=== PATIENT | female | born 1980 | race Caucasian/White ===

== ENCOUNTER 2017-04-15 14:19 | Outpatient (RCR) ==
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
== END 2017-04-23 ==
PROVIDERS: ATTEND Family Medicine
DX: G82.50 Quadriplegia, unspecified (principal); R53.1 Weakness; S09.90XD Unspecified injury of head, subsequent encounter; V89.2XXS Person injured in unspecified motor-vehicle accident, traffic, sequela

== ENCOUNTER 2017-05-02 14:56 | Emergency (ER) ==
[2017-05-02 15:33] VITALS: BP 139/82; TEMP 98.6; BMI 30.7
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
== END 2017-05-02 16:12 | disposition home or self-care (01) ==
LOC: ED 14:56
DX: S01.81XA Laceration without foreign body of other part of head, initial encounter (principal); W20.8XXA Other cause of strike by thrown, projected or falling object, initial encounter; F17.210 Nicotine dependence, cigarettes, uncomplicated
CPT/HCPCS: 99283

== ENCOUNTER 2017-06-13 11:47 | Emergency (ER) ==
[2017-06-13 11:56] VITALS: BP 111/77; TEMP 98.7; BMI 29.9
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
== END 2017-06-13 13:22 | disposition home or self-care (01) ==
LOC: ED 11:47
DX: R07.89 Other chest pain (principal); F17.210 Nicotine dependence, cigarettes, uncomplicated; W22.8XXA Striking against or struck by other objects, initial encounter
CPT/HCPCS: 99283

== ENCOUNTER 2017-07-03 10:04 | Outpatient (CLI) ==
[2017-07-03 10:16] LABS: BILIRUBIN,URINE Negative (NEGATIVE); KETONES,URINE Negative (NEGATIVE); LEUKOCYTE ESTERASE ,URINE Negative (NEGATIVE); NITRITE,URINE Negative (NEGATIVE); PROTEIN,URINE Negative (NEGATIVE); URINE, BLOOD Trace-intact (NEGATIVE)
[2017-07-03 10:33] LABS: ADD URINE MICROSCOPIC YES
== END 2017-07-03 10:05 | disposition home or self-care (01) ==
LOC: LAB 10:04 → NONPT 10:05
PROVIDERS: ATTEND Physician Assistant
DX: R32 Unspecified urinary incontinence (principal)
CPT/HCPCS: 81001

== ENCOUNTER 2017-08-02 13:22 | Emergency (ER) | payer OTHER ==
[2017-08-02 13:30] VITALS: BP 133/86; TEMP 98.9; BMI 29.1
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
--- NOTE | 2017-08-02 14:33 | DI ---
EXAM: Right ribs; AP, oblique, and cone down AP views HISTORY: Rib pain COMPARISON: Right rib series from 06/13/2017 FINDINGS: There is a minimally displaced mildly angulated fracture of the lateral aspect of the rig ht fifth rib which is more visible on today's examination. No other definite rib fractures are iden tified. There is no pneumothorax or pleural effusion. IMPRESSION: Right fifth rib fracture as described.
[2017-08-02] MEDS ORDERED: MOTRIN PO SCH (15:00)
== END 2017-08-02 14:47 | disposition home or self-care (01) ==
LOC: ED 13:22
DX: S22.31XA Fracture of one rib, right side, initial encounter for closed fracture (principal); W50.0XXA Accidental hit or strike by another person, initial encounter; F79 Unspecified intellectual disabilities; G82.20 Paraplegia, unspecified; F17.210 Nicotine dependence, cigarettes, uncomplicated
CPT/HCPCS: 99283

== ENCOUNTER 2017-08-09 12:31 | Inpatient (IN) ==
[2017-08-09] MEDS ORDERED: ZOSYN 3.375 GM 3.375 GM in SODIUM CHLORIDE 100 ML IV STA (13:05)
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
[2017-08-09 13:29] LABS: BASOPHILS % (AUTO) 0.3 % (0.0-3.0); EOSINOPHILS # (AUTO) 0.1 K/ul (0.0-0.7); EOSINOPHILS % (AUTO) 0.7 % (0.0-7.0); HEMATOCRIT 42.8 % (37.0-47.0); HEMOGLOBIN 14.3 g/dl (12.0-16.0); IMMATURE GRANULOCYTE % (AUTO) 0.6 % (0.0-5.0); LYMPHOCYTES # (AUTO) 1.8 K/uL (0.60-3.4); LYMPHOCYTES % (AUTO) 17.4 (10.0-50.0); MEAN CORPUSCULAR HEMOGLOBIN 32.4 pg (27.0-31.0); MEAN CORPUSCULAR HGB CONC 33.4 (31.8-35.4); MEAN CORPUSCULAR VOLUME 97.1 fl (81.0-99.0); MONOCYTES # (AUTO) 0.6 K/uL (0.4-2.0); MONOCYTES % (AUTO) 5.4 (0-10); NEUTROPHILS # (AUTO) 7.8 K/ul (2.0-6.9); NEUTROPHILS % (AUTO) 75.6; PLATELET COUNT 117 10^3/uL (140-440); RED BLOOD COUNT 4.41 10^6/ul (4.20-5.40); WHITE BLOOD COUNT 10.24 K/ul (4.6-10.2)
[2017-08-09 13:49] LABS: ALBUMIN 2.9 g/dL (3.4-5.0); ALBUMIN/GLOBULIN RATIO 0.62; ANION GAP 14.5; CALCIUM 9.4 mg/dL (8.2-10.2); POTASSIUM 3.5 mmol/L (3.5-5.10); TOTAL PROTEIN 7.6 g/dL (6.4-8.2)
[2017-08-09 13:50] LABS: BILIRUBIN,TOTAL 0.48 mg/dL (0.00-1.20); BUN/CREATININE RATIO 10.14; CREATININE 0.69 mg/dL (0.60-1.30)
[2017-08-09] MEDS ORDERED: TYLENOL PO PRN (14:43)
[2017-08-09] MEDS ORDERED: NORCO 5-325 PO PRN (14:43)
[2017-08-09] MEDS ORDERED: ZOFRAN 4 MG/2 ML IVP PRN (14:43)
[2017-08-09] MEDS ORDERED: PERCOCET 5-325 PO PRN (14:43)
[2017-08-09] MEDS ORDERED: NON-FORMULARY MEDICATION (Baclofen [Baclofen] 20 MG) PO SCH (15:00)
[2017-08-09 16:11] VITALS: BMI 30.5
[2017-08-09] MEDS ORDERED: TORADOL IVP PRN (16:25)
[2017-08-09] MEDS: MEDROXYPROGESTERONE ACETATE 150 MG IM SCH ×13 (16:39→17:55)
[2017-08-09] MEDS: SODIUM CHLORIDE 1,000 ML IV SCH (16:39)
[2017-08-09] MEDS ORDERED: NEURONTIN ONE ×2 (17:21→20:24)
[2017-08-09] MEDS ORDERED: BACLOFEN ONE ×2 (17:21→17:34)
[2017-08-09] MEDS: DANTROLENE SODIUM 25 MG PO SCH ×3 (17:28→23:06)
[2017-08-09] MEDS: NON-FORMULARY MEDICATION (Gabapentin [Gabapentin] 600 MG) PO SCH ×2 (17:29→20:37)
[2017-08-09] MEDS: NON-FORMULARY MEDICATION (Ibuprofen [Ibuprofen] 800 MG) PO SCH ×44 (17:29→20:40)
[2017-08-09] MEDS ORDERED: K-DUR ONE (20:24)
[2017-08-09] MEDS ORDERED: ATIVAN ONE (20:24)
[2017-08-09] MEDS ORDERED: NON-FORMULARY MEDICATION (Trazodone Hcl [Trazodone Hcl] 150 MG) PO SCH ×22 (20:31)
[2017-08-09] MEDS ORDERED: DESYREL ONE (20:33)
[2017-08-09] MEDS: ARTIFICIAL TEARS OPTH SOL OP SCH (20:36)
[2017-08-09] MEDS ORDERED: MOTRIN ONE (20:39)
[2017-08-09] MEDS ORDERED: BACLOFEN PO SCH ×2 (21:00)
[2017-08-09] MEDS ORDERED: NON-FORMULARY MEDICATION (Potassium Chloride [Potassium Chloride] 10 MEQ) PO SCH ×22 (21:00)
[2017-08-09] MEDS ORDERED: LORAZEPAM 2 MG PO SCH (21:00)
[2017-08-09] MEDS: NON-FORMULARY MEDICATION (Melatonin [Melatonin] 5 MG) PO SCH ×2 (21:28→23:06)
[2017-08-09] MEDS: ZOSYN 3.375 GM 3.375 GM in SODIUM CHLORIDE 100 ML IV SCH (23:20)
[2017-08-10] MEDS: ZOSYN 3.375 GM 3.375 GM in SODIUM CHLORIDE 100 ML IV SCH ×4 (05:01→17:49)
[2017-08-10 05:19] LABS: BASOPHILS % (AUTO) 0.5 % (0.0-3.0); EOSINOPHILS # (AUTO) 0.1 K/ul (0.0-0.7); EOSINOPHILS % (AUTO) 0.9 % (0.0-7.0); HEMATOCRIT 38.4 % (37.0-47.0); IMMATURE GRANULOCYTE % (AUTO) 0.7 % (0.0-5.0); LYMPHOCYTES # (AUTO) 1.6 K/uL (0.60-3.4); LYMPHOCYTES % (AUTO) 18.1 (10.0-50.0); MEAN CORPUSCULAR HEMOGLOBIN 32.3 pg (27.0-31.0); MEAN CORPUSCULAR HGB CONC 33.9 (31.8-35.4); MEAN CORPUSCULAR VOLUME 95.3 fl (81.0-99.0); MONOCYTES # (AUTO) 0.5 K/uL (0.4-2.0); MONOCYTES % (AUTO) 5.7 (0-10); NEUTROPHILS # (AUTO) 6.6 K/ul (2.0-6.9); NEUTROPHILS % (AUTO) 74.1; PLATELET COUNT 108 10^3/uL (140-440); RED BLOOD COUNT 4.03 10^6/ul (4.20-5.40); WHITE BLOOD COUNT 8.84 K/ul (4.6-10.2)
[2017-08-10 05:35] LABS: ANION GAP 12.5; CALCIUM 8.8 mg/dL (8.2-10.2); CREATININE 0.6 mg/dL (0.60-1.30); POTASSIUM 3.5 mmol/L (3.5-5.10)
[2017-08-10] MEDS: SODIUM CHLORIDE 1,000 ML IV SCH ×2 (06:24→21:16)
[2017-08-10] MEDS: PREDNISONE PO SCH ×3 (08:59→21:14)
[2017-08-10] MEDS: MOTRIN PO SCH ×3 (08:59→21:14)
[2017-08-10] MEDS: DESYREL PO SCH ×3 (08:59→21:15)
[2017-08-10] MEDS: MICRO-K CAP PO SCH ×2 (08:59→17:48)
[2017-08-10] MEDS ORDERED: BACLOFEN PO SCH (09:00)
[2017-08-10] MEDS ORDERED: NON-FORMULARY MEDICATION (Baclofen [Baclofen] 20 MG) PO SCH (09:00)
[2017-08-10] MEDS ORDERED: NON-FORMULARY MEDICATION (Tolterodine Tartrate 4 MG) PO SCH (09:00)
[2017-08-10] MEDS ORDERED: NON-FORMULARY MEDICATION (Trazodone Hcl [Trazodone Hcl] 150 MG) PO SCH ×22 (09:00)
[2017-08-10] MEDS: PROZAC PO SCH (09:00)
[2017-08-10] MEDS: DETROL LA PO SCH (09:00)
[2017-08-10] MEDS: NEURONTIN PO SCH ×3 (09:01→21:15)
[2017-08-10] MEDS: LOVENOX SUBCUT SCH ×2 (09:01→09:07)
[2017-08-10] MEDS: DANTROLENE SODIUM 25 MG PO SCH ×5 (09:05→21:15)
--- NOTE | 2017-08-10 10:13 | DI ---
EXAM: Chest, single view, 08/09/2017 HISTORY: Right rib pain COMPARISON: None. FINDINGS / IMPRESSION: The heart size appears stable. There is diffuse interstitial prominence thro ughout both lungs which may relate to atelectasis and/or pneumonitis. There is no focal pulmonary co nsolidation. No pleural effusion or pneumothorax.
[2017-08-10] MEDS: BACLOFEN PO SCH ×2 (17:48→21:15)
[2017-08-10] MEDS: ARTIFICIAL TEARS OPTH SOL OP SCH (21:14)
[2017-08-10] MEDS: BACTRIM DS 800/160 MG PO SCH (21:14)
[2017-08-10] MEDS: ATIVAN PO SCH (21:15)
[2017-08-10] MEDS: NON-FORMULARY MEDICATION (Melatonin [Melatonin] 5 MG) PO SCH (21:16)
[2017-08-11 07:13] LABS: BASOPHILS % (AUTO) 0.1 % (0.0-3.0); EOSINOPHILS # (AUTO) 0.1 K/ul (0.0-0.7); EOSINOPHILS % (AUTO) 0.9 % (0.0-7.0); HEMATOCRIT 40.1 % (37.0-47.0); HEMOGLOBIN 13.4 g/dl (12.0-16.0); IMMATURE GRANULOCYTE % (AUTO) 0.8 % (0.0-5.0); LYMPHOCYTES # (AUTO) 0.2 K/uL (0.60-3.4); LYMPHOCYTES % (AUTO) 1.8 (10.0-50.0); MEAN CORPUSCULAR HEMOGLOBIN 32.4 pg (27.0-31.0); MEAN CORPUSCULAR HGB CONC 33.4 (31.8-35.4); MEAN CORPUSCULAR VOLUME 97.1 fl (81.0-99.0); MONOCYTES # (AUTO) 0.1 K/uL (0.4-2.0); NEUTROPHILS # (AUTO) 9.9 K/ul (2.0-6.9); NEUTROPHILS % (AUTO) 95.4; PLATELET COUNT 111 10^3/uL (140-440); RED BLOOD COUNT 4.13 10^6/ul (4.20-5.40); WHITE BLOOD COUNT 10.36 K/ul (4.6-10.2)
[2017-08-11 07:32] LABS: ANION GAP 13.7; BUN/CREATININE RATIO 11.11; CALCIUM 9.1 mg/dL (8.2-10.2); CREATININE 0.63 mg/dL (0.60-1.30); POTASSIUM 3.7 mmol/L (3.5-5.10)
[2017-08-11] MEDS: BACTRIM DS 800/160 MG PO SCH ×2 (10:18→20:20)
[2017-08-11] MEDS: BACLOFEN PO SCH ×3 (10:19→20:21)
[2017-08-11] MEDS: DETROL LA PO SCH (10:20)
[2017-08-11] MEDS: MOTRIN PO SCH ×3 (10:21→20:20)
[2017-08-11] MEDS: MICRO-K CAP PO SCH ×2 (10:21→18:05)
[2017-08-11] MEDS: PROZAC PO SCH (10:22)
[2017-08-11] MEDS: NEURONTIN PO SCH ×3 (10:22→20:21)
[2017-08-11] MEDS: LOVENOX SUBCUT SCH (10:23)
[2017-08-11] MEDS: DANTROLENE SODIUM 25 MG PO SCH ×3 (10:30→20:19)
[2017-08-11 11:29] LABS: ERYTHROCYTE SEDIMENTATION RATE 68 mm/hr (0-20); ESR INTERNAL QC INTERNAL QC VALID
--- NOTE | 2017-08-11 14:34 | CT ---
EXAM: CT of the right elbow without contrast History: Right elbow cellulitis. Comparison: None available. Technique: Multiplanar CT images through the right elbow were obtained without the administration of IV contrast Findings: No acute fracture or dislocation. No specific evidence for osteomyelitis. Posterior subc utaneous edema. Focal area of posterior soft tissue swelling measuring 3.4 cm x 1.5 cm. There is a skin defect/ulceration posterior to the olecranon of the ulna. Evaluation for abscess is limited due to the lack of IV contrast administration. There are a few borderline enlarged lymph nodes within t he antecubital fossa which are probably reactive. Impression: 1. Cellulitis. 2. Focal area of posterior soft tissue versus small abscess but evaluation for abscess is limited du e to the lack of IV contrast administration. 3. Skin defect/ulceration posterior to the olecranon of the ulna. There is no evidence for osteomye litis. 4. Probably reactive lymph nodes within the antecubital fossa.
[2017-08-11] MEDS: NON-FORMULARY MEDICATION (Melatonin [Melatonin] 5 MG) PO SCH (20:19)
[2017-08-11] MEDS: PREDNISONE PO SCH (20:20)
[2017-08-11] MEDS: ATIVAN PO SCH (20:20)
[2017-08-11] MEDS: DESYREL PO SCH (20:21)
[2017-08-11] MEDS: ARTIFICIAL TEARS OPTH SOL OP SCH (20:23)
[2017-08-12] MEDS ORDERED: DECADRON 4 MG/ML SDV IM STA ×2 (08:32→10:56)
[2017-08-12] MEDS: BACLOFEN PO SCH ×3 (10:58→21:49)
[2017-08-12] MEDS: DANTROLENE SODIUM 25 MG PO SCH ×3 (10:59→21:50)
[2017-08-12] MEDS: BACTRIM DS 800/160 MG PO SCH ×2 (10:59→21:49)
[2017-08-12] MEDS: DETROL LA PO SCH (11:00)
[2017-08-12] MEDS: MICRO-K CAP PO SCH ×2 (11:00→17:10)
[2017-08-12] MEDS: NEURONTIN PO SCH ×3 (11:01→21:50)
[2017-08-12] MEDS: MOTRIN PO SCH ×3 (11:01→21:50)
[2017-08-12] MEDS: PROZAC PO SCH (11:02)
[2017-08-12 11:06] LABS: BASOPHILS % (AUTO) 0.5 % (0.0-3.0); EOSINOPHILS # (AUTO) 0.1 K/ul (0.0-0.7); EOSINOPHILS % (AUTO) 1.4 % (0.0-7.0); HEMATOCRIT 41.2 % (37.0-47.0); HEMOGLOBIN 13.6 g/dl (12.0-16.0); IMMATURE GRANULOCYTE % (AUTO) 1.4 % (0.0-5.0); LYMPHOCYTES # (AUTO) 0.3 K/uL (0.60-3.4); LYMPHOCYTES % (AUTO) 6.4 (10.0-50.0); MEAN CORPUSCULAR HEMOGLOBIN 32.5 pg (27.0-31.0); MEAN CORPUSCULAR VOLUME 98.6 fl (81.0-99.0); MONOCYTES # (AUTO) 0.2 K/uL (0.4-2.0); MONOCYTES % (AUTO) 3.6 (0-10); NEUTROPHILS # (AUTO) 3.6 K/ul (2.0-6.9); NEUTROPHILS % (AUTO) 86.7; PLATELET COUNT 126 10^3/uL (140-440); RED BLOOD COUNT 4.18 10^6/ul (4.20-5.40)
[2017-08-12] MEDS: LOVENOX SUBCUT SCH (11:06)
[2017-08-12 11:56] LABS: ANION GAP 12.1; BUN/CREATININE RATIO 24.13; CALCIUM 8.6 mg/dL (8.2-10.2); CREATININE 0.58 mg/dL (0.60-1.30); POTASSIUM 4.1 mmol/L (3.5-5.10)
[2017-08-12] MEDS ORDERED: VANCOMYCIN 1 GM in SODIUM CHLORIDE 250 ML IV SCH (18:00)
[2017-08-12] MEDS: ZOSYN 3.375 GM 3.375 GM in SODIUM CHLORIDE 100 ML IV SCH ×2 (18:40→23:40)
[2017-08-12] MEDS: ARTIFICIAL TEARS OPTH SOL OP SCH (21:47)
[2017-08-12] MEDS: PREDNISONE PO SCH (21:49)
[2017-08-12] MEDS: DESYREL PO SCH (21:49)
[2017-08-12] MEDS: NON-FORMULARY MEDICATION (Melatonin [Melatonin] 5 MG) PO SCH (21:50)
[2017-08-12] MEDS: ATIVAN PO SCH (21:54)
[2017-08-13 04:58] LABS: BASOPHILS % (AUTO) 0.3 % (0.0-3.0); EOSINOPHILS % (AUTO) 0.3 % (0.0-7.0); HEMATOCRIT 38.1 % (37.0-47.0); HEMOGLOBIN 12.8 g/dl (12.0-16.0); IMMATURE GRANULOCYTE % (AUTO) 0.8 % (0.0-5.0); LYMPHOCYTES # (AUTO) 0.6 K/uL (0.60-3.4); LYMPHOCYTES % (AUTO) 15.1 (10.0-50.0); MEAN CORPUSCULAR HEMOGLOBIN 31.9 pg (27.0-31.0); MEAN CORPUSCULAR HGB CONC 33.6 (31.8-35.4); MONOCYTES # (AUTO) 0.2 K/uL (0.4-2.0); MONOCYTES % (AUTO) 6.3 (0-10); NEUTROPHILS % (AUTO) 77.2; PLATELET COUNT 121 10^3/uL (140-440); RED BLOOD COUNT 4.01 10^6/ul (4.20-5.40); WHITE BLOOD COUNT 3.83 K/ul (4.6-10.2)
[2017-08-13] MEDS: ZOSYN 3.375 GM 3.375 GM in SODIUM CHLORIDE 100 ML IV SCH ×3 (05:08→17:15)
[2017-08-13 05:27] LABS: ANION GAP 12.1; BUN/CREATININE RATIO 18.18; CALCIUM 8.7 mg/dL (8.2-10.2); CREATININE 0.66 mg/dL (0.60-1.30); POTASSIUM 4.1 mmol/L (3.5-5.10)
[2017-08-13] MEDS ORDERED: VANCOMYCIN 1 GM in SODIUM CHLORIDE 250 ML IV SCH (09:30)
[2017-08-13] MEDS: BACLOFEN PO SCH ×3 (09:37→21:29)
[2017-08-13] MEDS: DETROL LA PO SCH (09:38)
[2017-08-13] MEDS: MICRO-K CAP PO SCH ×2 (09:38→17:16)
[2017-08-13] MEDS: MOTRIN PO SCH ×3 (09:38→21:32)
[2017-08-13] MEDS: BACTRIM DS 800/160 MG PO SCH ×2 (09:38→21:31)
[2017-08-13] MEDS: NEURONTIN PO SCH ×3 (09:38→21:31)
[2017-08-13] MEDS: PROZAC PO SCH (09:38)
[2017-08-13] MEDS: BENADRYL PO SCH ×2 (09:41→21:31)
[2017-08-13] MEDS: DANTROLENE SODIUM 25 MG PO SCH ×3 (09:41→21:27)
[2017-08-13] MEDS: LOVENOX SUBCUT SCH (09:50)
[2017-08-13] MEDS: VANCOMYCIN 1 GM in SODIUM CHLORIDE 250 ML IV SCH ×2 (09:50→20:31)
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
--- NOTE | 2017-08-13 14:49 | PN ---
DATE OF SERVICE: 08/10/17 SUBJECTIVE: The patient has been troubling for the nurses, refusing to have IV antibiotics and pulled out the IV line. The patient has a power of public relations specialist who is her mother and we are not always able to reach her. REVIEW OF SYSTEMS: CONSTITUTIONAL: No fever, no chills. HEENT: Normal. ENDOCRINE: No weight gain, no weight loss. CVS: No angina symptoms. No CHF symptoms. No palpitations. No atypical chest pain for CAD. No shortness of breath. No PND, no orthopnea. RESPIRATORY: No cough, no hemoptysis. GI: No nausea, no vomiting. No abdominal pain. : No hematuria. No polyuria. MUSCULOSKELETAL:. Right elbow swelling, redness and tenderness. PSYCHIATRIC: Not anxious. No depression. No suicidal thoughts. No homicidal thoughts. SKIN: Intact. No rash. PHYSICAL EXAMINATION: V/S: BP 115/76, respiratory rate 18, heart rate 86, temperature 98.2. Saturation 93. HEENT: Normocephalic, atraumatic. Mucosa dry. NECK: Supple. No JVD, no carotid bruit. No lymphadenopathy. LUNGS: Clear to auscultation. No rales or rhonchi. HEART: S1, S2 normal. No S3. No murmur, gallop or regurgitation. ABDOMEN: Soft, nontender. Bowel sounds active. No rigidity. No rebound or guarding. No CVA tenderness. EXTREMITIES: No clubbing, cyanosis or pedal edema. MUSCULOSKELETAL: Right elbow swelling, redness and tenderness is present. Can see drainage. NEUROLOGIC: Awake, alert, oriented times three. Communication is poor because of the patient's condition. No focal deficit. LYMPHATIC: No lymph nodes palpable. SKIN: Intact. LABS: White count 8.84, hemoglobin 13.0, hematocrit 38.4, platelet count 108. Sodium 136, potassium 3.5, chloride 105, bicarb 22, BUN 6, creatinine 0.60. ASSESSMENT: 1. RIGHT ELBOW ABSCESS WITH A DRAINING AREA 2. HISTORY OF TRAUMATIC BRAIN INJURY 3. QUADRIPLEGIA 4. DEPRESSION 5. ANXIETY 6. ON MEDICAL MARIJUANA PLAN: Will try to get IV line again. Explained to patient the importance of the medication and risk of getting infection to the bone and osteomyelitis. As I already stated, the patient has a poor capability of understanding with given condition. She kept saying that she wants to go home but when we talked with the patient's mother, who is the power of public relations specialist, she refused to send her back to assisted living facility. Advised nurses to please get the IV line and start antibiotics. Meanwhile, the patient is on Bactrim DS p.o. medication. TIME SPENT: More than 30 minutes MTDD
[2017-08-13] MEDS: ARTIFICIAL TEARS OPTH SOL OP SCH (21:27)
[2017-08-13] MEDS: NON-FORMULARY MEDICATION (Melatonin [Melatonin] 5 MG) PO SCH (21:28)
[2017-08-13] MEDS: PREDNISONE PO SCH (21:29)
[2017-08-13] MEDS: DESYREL PO SCH (21:30)
[2017-08-13] MEDS: ATIVAN PO SCH (21:39)
[2017-08-14] MEDS: ZOSYN 3.375 GM 3.375 GM in SODIUM CHLORIDE 100 ML IV SCH ×4 (01:50→17:11)
[2017-08-14] MEDS: VANCOMYCIN 1 GM in SODIUM CHLORIDE 250 ML IV SCH ×2 (08:40→21:39)
[2017-08-14] MEDS: DANTROLENE SODIUM 25 MG PO SCH ×3 (08:44→22:03)
[2017-08-14] MEDS: PROZAC PO SCH (08:45)
[2017-08-14] MEDS: BENADRYL PO SCH ×2 (08:45→22:04)
[2017-08-14] MEDS: BACLOFEN PO SCH ×3 (08:45→22:00)
[2017-08-14] MEDS: MOTRIN PO SCH ×3 (08:45→22:04)
[2017-08-14] MEDS: NEURONTIN PO SCH ×3 (08:46→22:04)
[2017-08-14] MEDS: BACTRIM DS 800/160 MG PO SCH ×2 (08:46→22:03)
[2017-08-14] MEDS: LOVENOX SUBCUT SCH (08:46)
[2017-08-14] MEDS: MICRO-K CAP PO SCH ×2 (08:46→17:18)
[2017-08-14] MEDS: DETROL LA PO SCH (08:46)
[2017-08-14 09:38] LABS: BASOPHILS % (AUTO) 0.8 % (0.0-3.0); HEMATOCRIT 42.1 % (37.0-47.0); IMMATURE GRANULOCYTE % (AUTO) 1.3 % (0.0-5.0); LYMPHOCYTES # (AUTO) 1.2 K/uL (0.60-3.4); LYMPHOCYTES % (AUTO) 30.3 (10.0-50.0); MEAN CORPUSCULAR HGB CONC 33.3 (31.8-35.4); MEAN CORPUSCULAR VOLUME 96.1 fl (81.0-99.0); MONOCYTES # (AUTO) 0.3 K/uL (0.4-2.0); MONOCYTES % (AUTO) 7.8 (0-10); NEUTROPHILS # (AUTO) 2.3 K/ul (2.0-6.9); NEUTROPHILS % (AUTO) 58.8; PLATELET COUNT 138 10^3/uL (140-440); RED BLOOD COUNT 4.38 10^6/ul (4.20-5.40); WHITE BLOOD COUNT 3.86 K/ul (4.6-10.2)
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
[2017-08-14 09:54] LABS: ANION GAP 14.2; BUN/CREATININE RATIO 12.32; CALCIUM 8.7 mg/dL (8.2-10.2); CREATININE 0.73 mg/dL (0.60-1.30); POTASSIUM 4.2 mmol/L (3.5-5.10)
--- NOTE | 2017-08-14 10:32 | PCM.PROG ---
Attending Provider: ATTENDING PROVIDER: Dr. VERO HENDERSON DATE OF SERVICE: 08/14/17 SUBJECTIVE: This 36 year old WHITE/ F was hospitalized 08/09/17. The patient is lying in bed. She is receiving IV Vancomycin and did not have any reaction to it. The right elbow wound is draining pus, gram positive cocci, heavy. REVIEW OF SYSTEMS: CONSTITUTIONAL: No fever, no chills. ENDOCRINE: No weight loss or weight gain. HEENT: No sinus drainage, no sore throat. CVS: No angina symptoms. No CHF symptoms. No palpitations. No atypical chest pain for CAD. No shortness of breath. RESPIRATORY: No cough, no hemoptysis. GI: No melena. No abdominal pain. No nausea, no vomiting. : No hematuria. No polyuria. SKIN: No rash. Abscess on right elbow, draining. MUSCULOSKELETAL: No pain. PITCHING COACH: No blackout, no dizziness. No headache. No double vision. PSYCHIATRIC: Not anxious; no depression. No suicidal thoughts. No homicidal thoughts. PHYSICAL EXAMINATION: GENERAL: Lying in bed in no distress. VITAL SIGNS: Temperature 98.2 F, Pulse 76, Respiratory Rate 16, BP 125/89, Pulse Ox 93% HEENT: Normocephalic, atraumatic. Mucosa is dry, pallor positive. NECK: No JVP, no carotid bruit. No lymphadenopathy. CARDIAC: S1, S2, no S3. No murmur, gallop or regurgitation. LUNGS: Clear to auscultation. ABDOMEN: Soft, non-tender. Bowel sounds active. No rigidity, guarding or CVA tenderness. EXTREMITIES: No clubbing, cyanosis or edema. Wound on the right elbow has less swelling and redness today. It is draining pus and blood mixed. Size of the wound is drastically reduced. NEUROLOGIC: Awake, alert and oriented with confusion at times. LYMPHATIC: No palpable lymph nodes SKIN: Not dry. Intact. MUSCULOSKELETAL: No joint swelling. LAB REVIEW: 08/13/17 04:50 08/13/17 04:50 ASSESSMENT: 1. Right elbow abscess 2. History of traumatic brain injury 3. Quadriplegia (but patient moves right upper extremity - right arm fine) 4. Depression 5. Anxiety PLAN: 1. Request Dr. Palacios consult 2. Apply dry dressing 3. Continue IV Vancomycin Plan and coordination of the patient's care discussed in the presence of Coach Tour Driver and nurse. CONDITION: Stable SCRIBED BY: CHIN ISAAC [employer] Analysis Technician scribed while in presence of service performed by Dr. VERO HENDERSON on 08/14/17 ([id number])
--- NOTE | 2017-08-14 11:09 | PN ---
DATE OF SERVICE: 08/12/17 SUBJECTIVE: The patient was admitted with the right elbow abscess. It is still draining the puss. Dr. Palacios has seen the patient and he did also mention in consult that the patient is high risk for the osteomyelitis if the treatment was not given properly. CAT scan did not show any osteomyelitis at this time. REVIEW OF SYSTEMS: CONSTITUTIONAL: No fever, no chills. HEENT: Normal. ENDOCRINE: No weight gain, no weight loss. CVS: No angina symptoms. No CHF symptoms. No palpitations. No atypical chest pain for CAD. No shortness of breath. No PND, no orthopnea. RESPIRATORY: No cough, no hemoptysis. GI: No nausea, no vomiting. No abdominal pain. : No hematuria. No polyuria. MUSCULOSKELETAL:. No joint swelling. PSYCHIATRIC: Not anxious. No depression. No suicidal thoughts. No homicidal thoughts. SKIN: Intact. No rash. PHYSICAL EXAMINATION: V/S: Blood pressure 106/70, respiratory rate 20, heart rate 83, temperature 98.3 with saturation 96% on the room air. HEENT: Normocephalic, atraumatic. Mucosa . NECK: Supple. No JVD, no carotid bruit. No lymphadenopathy. LUNGS: Decreased and basilar crackles. No rales or rhonchi. HEART: S1, S2 normal. No S3. No murmur, gallop or regurgitation. ABDOMEN: Soft, nontender. Bowel sounds active. No rigidity. No rebound or guarding. No CVA tenderness. EXTREMITIES: No clubbing, cyanosis or pedal edema. Right elbow abscess is still draining puss, yellow to bloody. Swelling and size in slightly reduced. MUSCULOSKELETAL: No joint swelling. NEUROLOGIC: Awake, alert, oriented times three. No focal deficit. LYMPHATIC: No lymph nodes palpable. SKIN: Intact. LABS: WBC 4.20, hgb 13.6, hct 41.2, plt count 126, sodium 137, potassium 4.1, chloride 108, bicarb 21, BUN 14, creatinine 0.58. ASSESSMENT: 1. Right elbow abscess with drainage, preliminary wound culture did not read any bacteria yet. The patient is on the Bactrim DS. 2. Traumatic brain injury 3. Quadriplegia, on medical marijuana 4. Depression 5. Anxiety PLAN: 1. Will give IV line and start the patient on the Zosyn 2. Will try to get the Vancomycin but the patient is listed as allergy but will confirm with the patient's mother about what kind of allergy she has 3. Wet to dry dressing 4. Bactrim DS PO daily Will follow the patient in daily rounds. TIME SPENT: More than 35 minutes MTDD
--- NOTE | 2017-08-14 11:27 | PN ---
DATE OF SERVICE: 08/13/17 SUBJECTIVE: The patient was admitted with right elbow abscess and drainage. The patient was able to get the Zosyn yesterday. The patient's mother said that patient had a "Red Saranya" syndrome with the Vancomycin. We will give the first dose of the Vancomycin today and will give very slow rate and will give some Benadryl. The patient a little bit comfortable and still talks about going home but she is aware that the mother has to agree for that and she is unable. REVIEW OF SYSTEMS: CONSTITUTIONAL: No fever, no chills. HEENT: Normal. ENDOCRINE: No weight gain, no weight loss. CVS: No angina symptoms. No CHF symptoms. No palpitations. No atypical chest pain for CAD. No shortness of breath. No PND, no orthopnea. RESPIRATORY: No cough, no hemoptysis. GI: No nausea, no vomiting. No abdominal pain. : No hematuria. No polyuria. MUSCULOSKELETAL:. No joint swelling. PSYCHIATRIC: Not anxious. No depression. No suicidal thoughts. No homicidal thoughts. SKIN: Intact. No rash. PHYSICAL EXAMINATION: V/S: Blood pressure 111/69, respiratory rate 16, heart rate 70, temperature 98.0 with saturation 91% on the room air. HEENT: Normocephalic, atraumatic. Mucosa dry. NECK: Supple. No JVD, no carotid bruit. No lymphadenopathy. LUNGS: Decreased and basilar crackles. Clear to auscultation. No rales or rhonchi. HEART: S1, S2 normal. No S3. No murmur, gallop or regurgitation. ABDOMEN: Soft, nontender. Bowel sounds active. No rigidity. No rebound or guarding. No CVA tenderness. EXTREMITIES: No clubbing, cyanosis or pedal edema. Right elbow swelling and the redness is somewhat better. Still draining the yellow bloody puss. MUSCULOSKELETAL: No joint swelling. NEUROLOGIC: Awake, alert, oriented times three. No focal deficit. LYMPHATIC: No lymph nodes palpable. SKIN: Intact. LABS: Sodium 134, potassium 4.1, chloride 104, bicarb 22, BUN 12, creatinine 0.66, WBC 3.83, hgb 12.8, hct 38.1, plt count 121 ASSESSMENT: 1. Right elbow abscess with the drainage 2. History of traumatic brain injury 3. Quadriplegia 4. Muscle spasms on medication marijuana 5. Depression 6. Anxiety 7. Multiple skin graft PLAN: 1. Continue Zosyn 2. Continue Bactrim DS 3. Will do first dose of Vancomycin 4. Lovenox for the DVT prophylaxis Will follow the patient in daily rounds. TIME SPENT: More than 35 minutes MTDD
[2017-08-14] MEDS ORDERED: BACTROBAN TP SCH (21:00)
[2017-08-14] MEDS: PREDNISONE PO SCH (22:00)
[2017-08-14] MEDS: ARTIFICIAL TEARS OPTH SOL OP SCH (22:01)
[2017-08-14] MEDS: DESYREL PO SCH (22:03)
[2017-08-14] MEDS: NON-FORMULARY MEDICATION (Melatonin [Melatonin] 5 MG) PO SCH (22:03)
[2017-08-14] MEDS: ATIVAN PO SCH (22:04)
[2017-08-14] MEDS: BACTROBAN TP SCH (23:11)
[2017-08-15] MEDS: ZOSYN 3.375 GM 3.375 GM in SODIUM CHLORIDE 100 ML IV SCH ×3 (00:51→12:24)
[2017-08-15 05:50] LABS: HEMATOCRIT 39.7 % (37.0-47.0); HEMOGLOBIN 13.3 g/dl (12.0-16.0); MEAN CORPUSCULAR HEMOGLOBIN 32.1 pg (27.0-31.0); MEAN CORPUSCULAR HGB CONC 33.5 (31.8-35.4); MEAN CORPUSCULAR VOLUME 95.9 fl (81.0-99.0); PLATELET COUNT 133 10^3/uL (140-440); RED BLOOD COUNT 4.14 10^6/ul (4.20-5.40); WHITE BLOOD COUNT 4.69 K/ul (4.6-10.2)
[2017-08-15 05:54] LABS: ANISOCYTOSIS NOT PRESENT (NOT PRESENT)
[2017-08-15] MEDS: VANCOMYCIN 1 GM in SODIUM CHLORIDE 250 ML IV SCH (06:03)
[2017-08-15 06:13] LABS: ANION GAP 12.4; BUN/CREATININE RATIO 15.49; CALCIUM 8.6 mg/dL (8.2-10.2); CREATININE 0.71 mg/dL (0.60-1.30); POTASSIUM 4.4 mmol/L (3.5-5.10)
[2017-08-15 10:31] VITALS: BP 135/92; TEMP 97
[2017-08-15] MEDS: NEURONTIN PO SCH (10:36)
[2017-08-15] MEDS: BENADRYL PO SCH (10:36)
[2017-08-15] MEDS: PROZAC PO SCH (10:36)
[2017-08-15] MEDS: MICRO-K CAP PO SCH (10:36)
[2017-08-15] MEDS: BACTRIM DS 800/160 MG PO SCH (10:36)
[2017-08-15] MEDS: BACTROBAN TP SCH (10:37)
[2017-08-15] MEDS: BACLOFEN PO SCH (10:37)
[2017-08-15] MEDS: DANTROLENE SODIUM 25 MG PO SCH (10:37)
[2017-08-15] MEDS: DETROL LA PO SCH (10:37)
[2017-08-15] MEDS: MOTRIN PO SCH (10:37)
[2017-08-15] MEDS: LOVENOX SUBCUT SCH (10:38)
[2017-08-15] MEDS ORDERED: DIFLUCAN PO STA (10:49)
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
== END 2017-08-15 14:15 | disposition home or self-care (01) | DRG 603 ==
LOC: ED 12:31 → SCU 14:37
PROVIDERS: ADMIT Emergency Medicine; ATTEND Emergency Medicine
DX: L03.113 Cellulitis of right upper limb (principal); G82.20 Paraplegia, unspecified; S50.311A Abrasion of right elbow, initial encounter; F79 Unspecified intellectual disabilities; B95.62 Methicillin resistant Staphylococcus aureus infection as the cause of diseases classified elsewhere; F41.8 Other specified anxiety disorders; M62.838 Other muscle spasm; S22.39XD Fracture of one rib, unspecified side, subsequent encounter for fracture with routine healing; F17.210 Nicotine dependence, cigarettes, uncomplicated; F12.90 Cannabis use, unspecified, uncomplicated; Z93.0 Tracheostomy status; Z87.820 Personal history of traumatic brain injury; V89.2XXS Person injured in unspecified motor-vehicle accident, traffic, sequela; Z79.899 Other long term (current) drug therapy
CPT/HCPCS: 36415; 80048; 80053; 85007; 85025; 85651; 87040; 87070; 87186; 96365; 97802; 99284

== ENCOUNTER 2017-08-20 10:39 | Outpatient (CLI) | END 2017-08-20 10:40 | disposition home or self-care (01) | LOC: WOUND 10:39 | PROVIDERS: ATTEND Nurse Practitioner Family | DX: S51.011A Laceration without foreign body of right elbow, initial encounter (principal); G82.50 Quadriplegia, unspecified; M19.90 Unspecified osteoarthritis, unspecified site | CPT/HCPCS: 11042; 99201; 99202 ==

== ENCOUNTER 2017-08-24 11:27 | Inpatient (IN) ==
--- NOTE | 2017-08-24 11:42 | ED.PDOC ---
General ED Provider: Dr. ASHER MORFIN Chief Complaint: Stroke Stated Complaint: Found this AM upon awakening with slurred speech and left sided weakness. Patient denies headache or other pain. Difficult to understand, speech is sometimes unintelligible. Time Seen by Physician: 11:30 Mode of Arrival: Ambulance Information Source: Patient, EMT, Assisted Living Exam Limitations: Physical impairment Primary Care Provider: ROHAN HAZEL Nursing and Triage Documentation Reviewed and Agree: Yes Neurological Complaint Exam - Neurological Deficit Complaint/Exam Patient Complains of: Reports: Muscle weakness (left arm and left leg plus slurred speech) Symptom Onset Unknown: Yes Symptom Onset Date: 08/24/17 Symptoms Are: Still present Timing: Constant Initial Severity: Moderate Current Severity: Moderate Location: Reports: Facial, LUE, LLE Character: Reports: Motor weakness (left arm and leg were much weaker than normal when found, left arm has improved a little), Impaired speech (speech is much more slurred than usual, unintelligible at times) Aggravating: Reports: None Alleviating: Reports: None Associated Signs and Symptoms: Reports: Recent illness (MRSA infection of left elbow, s/p hospitlization last week, coughing more than usual today) SDH Risk Factors: Reports: None Carotid Bruit Present: No Meningeal Signs Positive: No Focal Weakness: Present: LUE, LLE, Right facial (no obvious facial muscle weakness except slurred speech), Left facial Nystagmus Present: No Gag Reflex Present: Yes Romberg Test Positive: No Babinski Sign: Negative Right, Negative Left Heel to Toe Normal: No (unable to perform because of paraplegia) Signs of Trauma: No Differential Diagnoses: CVA, TIA, Intracranial Mass, Intracranial Bleed Review of Systems - Review Of Systems Constitutional: Reports: Weakness Eyes: Reports: No symptoms Ears, Nose, Mouth, Throat: Reports: No symptoms Respiratory: Reports: No symptoms, Cough (increased [employer] cough today) Cardiac: Reports: No symptoms GI: Reports: No symptoms : Reports: No symptoms Musculoskeletal: Reports: Other (patient has partial hemiplegia and cannot move legs very much) Skin: Reports: No symptoms Neurological: Reports: Unable to move lower ext, Unable to move upper ext ( couldn't move left arm when found, can move it now but weaker than right arm), Weakness All Other Systems: Reviewed and Negative Past Medical History - Past Medical History Previously Healthy: Yes Endocrine: Reports: None Cardiovascular: Reports: None Respiratory: Reports: None Hematological: Reports: None Gastrointestinal: Reports: None Genitourinary: Reports: None Neuro/Psych: Reports: Anxiety, Depression, Other (paraplegia, mental retardation ) Musculoskeletal: Reports: Arthritis Cancer: Reports: None Last Menstrual Period: unknown Other Pertinent Past Medical History: TIB - Surgical History General Surgical History: Reports: , Orthopedic (carpal tunnel release ) - Family History Family History: Reports: None - Social History Smoking Status: Current every day smoker, Heavy tobacco smoker Hx Substance Use: No Alcohol Screening: None Lives: In [place] - Immunizations Tetanus Shot up to Date: No Influenza Vaccine within 12 Months: No Pneumococcal Vaccine up to Date: No Physical Exam - Physical Exam Appearance: Well-appearing, No pain distress, Well-nourished, Obese Ill-appearing: None Pain Distress: None Eyes: MERVAT, EOMI, Conjunctiva clear ENT: Ears normal, Nose normal, Oropharynx normal (except for slurred speech) Neck: Supple Respiratory: Airway patent, Breath sounds clear, Breath sounds equal, Respirations nonlabored Cardiovascular: RRR, Pulses normal, No rub, No murmur GI/: Soft, Nontender, No masses, Bowel sounds normal, No Organomegaly Musculoskeletal: No edema, No calf tenderness, Limited ROM (can only lift right arm up approx 45 degrees, left arm about 30 degrees, right and left legs not all but but palpable effort in right leg, none in left), Limited strength (all extremities are weak, but left arm weaker than right and left leg doesn't move at all, vs right which moves slightly with effort) Neurological: Sensation intact, Alert, Oriented, Alert to verbal, Alert to pain , Focal Deficit (slurred speech, left arm weaker than right, left leg doesn't move at all, right leg muscles tighten but unable to move it.) Psychiatric: Affect appropriate (difficult to assess mood because speech almost unintelligible, plus hx of mental retardation), Mood appropriate Interpretation - Radiology Interpretation Radiology Interpretation By: Radiologist Radiology Results: No acute changes Exam Interpreted: CXR, CT Scan Xray Comments: Nothing acute, brain volume loss, greater than expected for age. CXR WNL - EKG Interpretation Time of EKG #1: 12:10 Rate: Tachy (109 BPM) Rhythm: Sinus Ectopy: None Ehrenberg: NL ST Segment: Normal Interpretation: WNL Physician Notification - Case Discussed Physician Notified: Dr. Velazco Time of Notification: 13:21 (Admit) Critical Care Note - Critical Care Note Total Time (mins): 0 Course - Course Hematology/Chemistry: 08/24/17 12:00 08/24/17 12:00 Orders, Labs, Meds: Lab Review 08/24/17 08/24/17 08/24/17 12:00 12:00 12:00 WBC 6.76 RBC 3.92 L Hgb 12.4 Hct 36.7 L MCV 93.6 MCH 31.6 H MCHC 33.8 RDW Coeff of Avelino 14.3 Plt Count 106 L Neutrophils % (Manual) 65.0 Band Neutrophils % 10.0 H Lymphocytes % (Manual) 23.0 Monocytes % (Manual) 2.0 Anisocytosis Not present RBC Morph Comment PT 10.5 INR 1.03 APTT 32.5 Sodium 130 L Potassium 3.6 Chloride 100 Carbon Dioxide 21 Anion Gap 12.6 BUN 11 Creatinine 0.61 Estimated GFR (MDRD) 110.00 BUN/Creatinine Ratio 18.03 Glucose 99 Calcium 8.2 Total Bilirubin 0.39 AST 24 ALT 22 Alkaline Phosphatase 82 Total Creatine Kinase 42 Troponin I 0.0170 Total Protein 7.3 Albumin 2.2 L Globulin 5.1 Albumin/Globulin Ratio 0.43 Urine Color Urine Clarity Urine pH Ur Specific [place] Urine Protein Urine Glucose (UA) Urine Ketones Urine Blood Urine Nitrite Urine Bilirubin Urine Urobilinogen Ur Leukocyte Esterase Urine Microscopic RBC Urine Microscopic WBC Ur Squamous Epith Cells Urine Bacteria Urine Mucus 08/24/17 12:45 WBC RBC Hgb Hct MCV MCH MCHC RDW Coeff of Avelino Plt Count Neutrophils % (Manual) Band Neutrophils % Lymphocytes % (Manual) Monocytes % (Manual) Anisocytosis RBC Morph Comment PT INR APTT Sodium Potassium Chloride Carbon Dioxide Anion Gap BUN Creatinine Estimated GFR (MDRD) BUN/Creatinine Ratio Glucose Calcium Total Bilirubin AST ALT Alkaline Phosphatase Total Creatine Kinase Troponin I Total Protein Albumin Globulin Albumin/Globulin Ratio Urine Color Dark yellow Urine Clarity Hazy Urine pH 6.0 Ur Specific [place] >=1.030 Urine Protein 1+ Urine Glucose (UA) Negative Urine Ketones Trace Urine Blood 2+ Urine Nitrite Negative Urine Bilirubin 1+ Urine Urobilinogen 0.2 Ur Leukocyte Esterase Negative Urine Microscopic RBC 2-5 Urine Microscopic WBC 2-5 Ur Squamous Epith Cells 10-20 Urine Bacteria 2+ Urine Mucus 1+ Orders Category Date Time Status EKG-(ED ONLY) Stat CARDIO 08/24/17 11:45 Completed CBC W/ AUTO DIFF Stat LAB 08/24/17 12:00 Completed CK [CREATINE KINASE] Stat LAB 08/24/17 12:00 Completed COMPREHENSIVE METABOLIC PANEL Stat LAB 08/24/17 12:00 Completed MANUAL DIFFERENTIAL Stat LAB 08/24/17 12:00 Completed PT WITH INR Stat LAB 08/24/17 12:00 Completed PTT [PARTIAL THROMBOPLASTIN TIME] Stat LAB 08/24/17 12:00 Completed TROPONIN I Stat LAB 08/24/17 12:00 Completed URINALYSIS C & S IF INDICATED Stat LAB 08/24/17 12:45 Completed URINE CULTURE Stat LAB 08/24/17 12:45 Received CHEST, 1V AP ONLY Stat RADS 08/24/17 12:[address] HEAD W/O CONTRAST Stat RADS 08/24/17 11:44 Completed Vital Signs: Temp Pulse Resp BP Pulse Ox 08/24/17 11:27 99.7 F H 115 H 22 153/92 H 93 L Departure - Departure Time of Disposition: 13:24 Disposition: ADMITTED INPATIENT Discharge Problem: CVA (cerebral vascular accident), Hyponatremia Condition: Good Pt referred to PMD for follow-up: Yes (after discharge) Allergies/Adverse Reactions: Allergies latex Adverse Reaction (Verified 08/24/17 11:33) meperidine Adverse Reaction (Verified 08/24/17 11:33) morphine Adverse Reaction (Verified 08/24/17 11:33) vancomycin Adverse Reaction (Verified 08/24/17 11:33) tape Adverse Reaction (Uncoded 08/02/17 13:31) Home Medications: Ambulatory Orders Fluoxetine HCl [Prozac] 60 mg PO DAILY 05/02/17 Lorazepam 2 mg PO BEDTIME 05/02/17 Medroxyprogesterone Acetate [Depo-Provera] 150 mg IM DIRECTED 05/02/17 Melatonin 5 mg PO BEDTIME 05/02/17 Polyvinyl Alcohol [Artificial Tears] 2 drop OP BEDTIME 05/02/17 Prednisone 3 mg PO BEDTIME 05/02/17 Tolterodine Tartrate [Detrol LA] 4 mg PO DAILY 05/02/17 Baclofen 20 mg PO DAILY 08/02/17 Baclofen 30 mg PO 1730,2100 08/02/17 Dantrolene Sodium [Dantrium] 25 mg PO TID 08/02/17 Gabapentin 600 mg PO TID 08/02/17 Ibuprofen 800 mg PO TID #100 tablet 08/02/17 Potassium Chloride 10 meq PO BID 08/02/17 Trazodone HCl 150 mg PO BEDTIME 08/02/17 Melatonin/Pyridoxine HCl (B6) [Melatonin 5 mg Tablet] 5 mg PO BEDTIME 08/09/17 Sennosides [Senexon] 17.2 mg PO DAILY PRN 08/09/17 Clindamycin HCl 300 mg PO TID #15 capsule 08/15/17 Mupirocin Calcium [Bactroban] 15 gm TP BID #1 cream..g. 08/15/17 Sulfamethoxazole/Trimethoprim [Bactrim Ds 800/160 mg] 1 tab PO Q12HR #14 tablet 08/15/17 Disposition Discussed With: Patient, Other (data entry associate)
[2017-08-24 12:07] LABS: HEMATOCRIT 36.7 % (37.0-47.0); HEMOGLOBIN 12.4 g/dl (12.0-16.0); MEAN CORPUSCULAR HEMOGLOBIN 31.6 pg (27.0-31.0); MEAN CORPUSCULAR HGB CONC 33.8 (31.8-35.4); MEAN CORPUSCULAR VOLUME 93.6 fl (81.0-99.0); PLATELET COUNT 106 10^3/uL (140-440); RED BLOOD COUNT 3.92 10^6/ul (4.20-5.40); WHITE BLOOD COUNT 6.76 K/ul (4.6-10.2)
--- NOTE | 2017-08-24 12:07 | CT ---
Exam: Head CT. Date: 08/24/2017. Comparison: None. HISTORY: Slurred speech and left-sided weakness. TECHNIQUE: Helical scan through the brain was performed. FINDINGS: The calvarium is intact. The paranasal sinuses and mastoid air cells are clear. There is cerebral and cerebellar volume loss with benign appearing bifrontal extra-axial fluid collections. No abnormal intra-axial fluid is present. There is no midline shift or hydrocephalus. No large vess el infarct or hemorrhages identified. The austin-white interface is maintained. Impression: No acute intracranial findings. However there is cerebral and cerebellar volume loss, g reater than expected for the patient's age.
[2017-08-24 12:18] LABS: ANISOCYTOSIS NOT PRESENT (NOT PRESENT)
--- NOTE | 2017-08-24 12:20 | DI ---
EXAM: Chest 1 view. HISTORY: Possible cerebrovascular accident, slurred speech COMPARISON: 08/09/2017 FINDINGS: Heart size is normal. Minimal prominence of the bronchovascular markings There is no ple ural fluid. Skeletal structures are unremarkable. IMPRESSION: 1. Cardiac silhouette stable in size. 2. No evidence of congestive heart failure or pleural fluid. 3. Minimal prompts bronchovascular markings. Correlate clinically regarding mild bronchitis.
[2017-08-24 12:29] LABS: PARTIAL THROMBOPLASTIN TIME 32.5 SEC (23.9-40.0); PROTHROMBIN TIME 10.5 SEC (9.3-11.0)
[2017-08-24 12:39] LABS: ALBUMIN 2.2 g/dL (3.4-5.0); ALBUMIN/GLOBULIN RATIO 0.43; ANION GAP 12.6; BILIRUBIN,TOTAL 0.39 mg/dL (0.00-1.20); BUN/CREATININE RATIO 18.03; CALCIUM 8.2 mg/dL (8.2-10.2); CREATININE 0.61 mg/dL (0.60-1.30); POTASSIUM 3.6 mmol/L (3.5-5.10); TOTAL PROTEIN 7.3 g/dL (6.4-8.2); TROPONIN I 0.017 ng/ml (0.0000-0.4000)
[2017-08-24 12:50] LABS: BILIRUBIN,URINE 1+ (NEGATIVE); KETONES,URINE Trace (NEGATIVE); LEUKOCYTE ESTERASE ,URINE Negative (NEGATIVE); NITRITE,URINE Negative (NEGATIVE); PROTEIN,URINE 1+ (NEGATIVE); URINE, BLOOD 2+ (NEGATIVE)
[2017-08-24 12:54] LABS: ADD URINE MICROSCOPIC YES
[2017-08-24 12:55] LABS: BACTERIA,URINE 2+ (NOT PRESENT)
[2017-08-24] MEDS ORDERED: TYLENOL PO STA (14:32)
[2017-08-24 15:12] VITALS: BMI 30.6
[2017-08-24] MEDS ORDERED: SENNA PO PRN (15:13)
[2017-08-24] MEDS: NON-FORMULARY MEDICATION (Potassium Chloride [Potassium Chloride] 10 MEQ) PO SCH ×44 (17:34→22:36)
[2017-08-24] MEDS: BACLOFEN PO SCH ×2 (17:35→18:05)
[2017-08-24] MEDS: DANTROLENE SODIUM 25 MG PO SCH ×3 (17:35→21:35)
[2017-08-24] MEDS: NON-FORMULARY MEDICATION (Clindamycin Hcl [Clindamycin Hcl] 300 MG) PO SCH ×2 (17:35→22:29)
[2017-08-24] MEDS: NON-FORMULARY MEDICATION (Gabapentin [Gabapentin] 600 MG) PO SCH ×2 (17:35→22:31)
[2017-08-24] MEDS ORDERED: BACLOFEN ONE ×2 (17:55→18:05)
[2017-08-24] MEDS ORDERED: MICRO-K CAP ONE (17:55)
[2017-08-24] MEDS ORDERED: CLEOCIN ONE ×2 (17:55→21:16)
[2017-08-24] MEDS ORDERED: NEURONTIN ONE ×2 (17:55→21:15)
[2017-08-24] MEDS ORDERED: ASPIRIN CHEWABLE PO SCH (19:30)
[2017-08-24] MEDS ORDERED: ROCEPHIN 1 GM in SODIUM CHLORIDE 100 ML IV SCH (19:30)
[2017-08-24] MEDS ORDERED: DUONEB NEB PRN (19:30)
[2017-08-24] MEDS ORDERED: SODIUM CHLORIDE 1,000 ML IV SCH (19:30)
[2017-08-24] MEDS ORDERED: DECADRON 4 MG/ML SDV IM STA (19:51)
--- NOTE | 2017-08-24 19:59 | CT ---
Exam: CT thorax without IV contrast. Clinical indication: Cough. TECHNIQUE: Axial unenhanced CT images of the thorax were obtained followed by coronal and sagittal r eformats. There are no prior studies available for comparison. Findings: There is mild underlying paraseptal emphysema. There is some possible mild vascular redistribution associate with mild bilateral intralobular septal thickening and some bilateral patchy fairly symmetric areas of ground-glass opacity. The appearance suggests pulmonary edema versus atypical pneumonia. There is some right basilar atelectatic changes. The remainder the pulmonary parenchyma is unremarka ble. There is a small right-sided pleural effusion. There is no left-sided pleural effusion. There are no enlarged axillary, hilar or mediastinal lymph nodes, by size criteria. There is some focal areas of left-sided renal calcifications which appear to be intraparenchymal, but could represent nonobstructive renal calculi. The remainder the visualized portions of the upper ab domen are unremarkable. The visualized bony structures are unremarkable for the patient's age. Impression: 1. Findings suggest mild pulmonary edema versus atypical pneumonia. 2. Small right pleural effusion. 3. Mild underlying paraseptal emphysema.
[2017-08-24] MEDS ORDERED: NON-FORMULARY MEDICATION (Trazodone Hcl [Trazodone Hcl] 150 MG) PO SCH ×22 (20:00)
--- NOTE | 2017-08-24 20:07 | CT ---
EXAM: Noncontrast CT of the abdomen and pelvis. HISTORY: Abdomen and pelvic pain. COMPARISON: None. TECHNIQUE: Contiguous axial images at 3 mm intervals were obtained from lung bases through the pelvi s. No contrast was given. Coronal reformats were reviewed. FINDINGS: The study is limited without contrast. There is significant streak artifact due to the pat ient's arms in the CT gantry and metallic bracelets. CHEST: There is a right pleural effusion. The heart size is within normal limits. ABDOMEN: Evaluation of the soft tissue organs is limited without contrast. LIVER: Noncontrast images of the liver show no solid mass lesion or intrahepatic ductal dilatation. BILIARY: The gallbladder is not seen. There is no fluid in the gallbladder fossa. The common bile duct is normal. SPLEEN: The spleen is unremarkable. PANCREAS: The pancreas shows no mass lesion or peripancreatic inflammation. ADRENAL GLANDS: The adrenal glands are normal. RENAL: The kidneys show no hydronephrosis. There are nonobstructing calcifications in the mid left kidney, measuring up to 5 mm. There are no obstructing ureteral stones. No solid mass lesions are i dentified. RETROPERITONEUM: The aorta is unopacified. No aneurysm is identified. Moderate to heavy aortic danny cifications are seen. There is no retroperitoneal or mesenteric adenopathy. BOWEL: The bowel is unopacified. There is no obstruction or inflammatory change. There is no free fluid or free air. No significant inflammatory changes are seen. The appendix is identified and is normal. There is no significant diverticulosis or evidence of acute diverticulitis. PELVIS: BLADDER: The bladder is well distended and appears normal. GENITOURINARY STRUCTURES: The uterus and ovaries are unremarkable. OSSEOUS STRUCTURES: The osseous structures are normal for age. There is a soft tissue density and c alcifications adjacent to the greater trochanter on the left. Correlate for prior injury. IMPRESSION 1. No acute intra-abdominal abnormality. Limited study without contrast. No obstructing ureteral s tones. 2. The appendix is normal. 3. Small right pleural effusion. No definite lobar consolidation. 4. Left nephrolithiasis. No obstructing ureteral stones identified. 5. Significant streak artifact and motion artifact. 6. Soft tissue density and calcification adjacent to the greater trochanter on the left may be due t o prior injury. No acute abnormalities are seen.
[2017-08-24] MEDS: DUONEB NEB SCH ×2 (20:43→23:53)
[2017-08-24] MEDS ORDERED: MELATONIN PO SCH (21:00)
[2017-08-24] MEDS ORDERED: NON-FORMULARY MEDICATION (Melatonin [Melatonin] 5 MG) PO SCH (21:00)
[2017-08-24] MEDS ORDERED: MUPIROCIN CALCIUM 15 GM TP SCH (21:00)
[2017-08-24] MEDS ORDERED: PYRIDOXINE HCL PO SCH (21:00)
[2017-08-24] MEDS ORDERED: LORAZEPAM 2 MG PO SCH (21:00)
[2017-08-24] MEDS ORDERED: ATIVAN ONE (21:15)
[2017-08-24] MEDS ORDERED: ASPIRIN CHEWABLE ONE (21:16)
[2017-08-24] MEDS ORDERED: K-DUR ONE (21:17)
[2017-08-24] MEDS ORDERED: DESYREL ONE (21:17)
[2017-08-24] MEDS ORDERED: BACTROBAN TP ONE (21:17)
[2017-08-24] MEDS: MUCINEX PO SCH ×2 (21:23→22:33)
[2017-08-24] MEDS: PREDNISONE PO SCH (21:23)
[2017-08-24] MEDS: ARTIFICIAL TEARS OPTH SOL OP SCH (21:24)
[2017-08-24] MEDS: SODIUM CHLORIDE 1,000 ML IV SCH (21:35)
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
[2017-08-24] MEDS ORDERED: ROCEPHIN ONE (23:32)
[2017-08-24] MEDS: TYLENOL PO PRN (23:38)
[2017-08-25] MEDS: TYLENOL ONE ×2 (02:33→02:35)
[2017-08-25 04:52] LABS: BASOPHILS % (AUTO) 0.1 % (0.0-3.0); HEMATOCRIT 33.4 % (37.0-47.0); HEMOGLOBIN 11.7 g/dl (12.0-16.0); IMMATURE GRANULOCYTE % (AUTO) 0.7 % (0.0-5.0); LYMPHOCYTES # (AUTO) 1.3 K/uL (0.60-3.4); LYMPHOCYTES % (AUTO) 18.5 (10.0-50.0); MEAN CORPUSCULAR HEMOGLOBIN 32.7 pg (27.0-31.0); MEAN CORPUSCULAR VOLUME 93.3 fl (81.0-99.0); MONOCYTES # (AUTO) 0.4 K/uL (0.4-2.0); NEUTROPHILS # (AUTO) 5.3 K/ul (2.0-6.9); NEUTROPHILS % (AUTO) 74.7; PLATELET COUNT 111 10^3/uL (140-440); RED BLOOD COUNT 3.58 10^6/ul (4.20-5.40); WHITE BLOOD COUNT 7.04 K/ul (4.6-10.2)
[2017-08-25 05:16] LABS: ALBUMIN/GLOBULIN RATIO 0.41; ANION GAP 12.8; BILIRUBIN,TOTAL 0.39 mg/dL (0.00-1.20); BUN/CREATININE RATIO 17.54; CALCIUM 8.1 mg/dL (8.2-10.2); CREATININE 0.57 mg/dL (0.60-1.30); POTASSIUM 3.8 mmol/L (3.5-5.10); TOTAL PROTEIN 6.9 g/dL (6.4-8.2)
[2017-08-25] MEDS: DUONEB NEB SCH ×4 (05:34→23:29)
--- NOTE | 2017-08-25 08:06 | DI ---
EXAM: Radiographs, right hip HISTORY: Right hip pain. COMPARISON: None available. TECHNIQUE: Two views. FINDINGS: Bone mineralization is decreased. There is no fracture or dislocation. Moderate right hi p joint space narrowing noted with underlying marginal osteophyte formation. No erosive changes are seen. No focal soft tissue abnormality is seen. IMPRESSION: 1. Moderate right hip osteoarthritis. 2. Osteopenia.
--- NOTE | 2017-08-25 08:07 | DI ---
EXAM: Four views of the right knee HISTORY: Pain TECHNIQUE: AP lateral, oblique and sunrise views of the right knee were obtained. FINDINGS: No acute fractures are seen. There is no evidence of joint effusion. There is mild to mo derate loss of height of the medial compartment of the right knee. The soft tissues are normal. IMPRESSION: No acute fractures are seen within the right knee. There is arthritis seen within the medial compartment of the right knee.
[2017-08-25] MEDS ORDERED: NON-FORMULARY MEDICATION (Baclofen [Baclofen] 20 MG) PO SCH (09:00)
[2017-08-25] MEDS ORDERED: NON-FORMULARY MEDICATION (Multivitamin [Multi-Vitamin Daily] 1 EACH) PO SCH ×22 (09:00)
[2017-08-25] MEDS ORDERED: FOLIC ACID 0.8 MG PO SCH (09:00)
[2017-08-25] MEDS ORDERED: NON-FORMULARY MEDICATION (Tolterodine Tartrate 4 MG) PO SCH (09:00)
[2017-08-25] MEDS: ASPIRIN EC PO SCH (09:12)
[2017-08-25] MEDS: BACTROBAN TP SCH ×2 (09:13→20:28)
[2017-08-25] MEDS: CLEOCIN PO SCH ×3 (09:14→20:25)
[2017-08-25] MEDS: DANTROLENE SODIUM 25 MG PO SCH ×3 (09:15→20:24)
[2017-08-25] MEDS: MULTIVITAMIN PO SCH (09:16)
[2017-08-25] MEDS: DETROL LA PO SCH (09:16)
[2017-08-25] MEDS: MUCINEX PO SCH ×2 (09:16→20:25)
[2017-08-25] MEDS: FOLIC ACID PO SCH (09:16)
[2017-08-25] MEDS: TYLENOL PO PRN ×2 (09:17→17:11)
[2017-08-25] MEDS: PROZAC PO SCH (09:17)
[2017-08-25] MEDS: NEURONTIN PO SCH ×3 (09:17→20:25)
--- NOTE | 2017-08-25 14:08 | PN ---
DATE OF SERVICE: 08/25/17 SUBJECTIVE: The patient was admitted with the left sided weakness and slurry speech questionable for stroke. The patient is getting MRI of the brain and Carotid ultrasound today. Still has weakness and slurry speech is somewhat improved. CT of abdomen and pelvis did not show any new findings yesterday. CT chest did show question atypical pneumonia. The patient does have cough and congestion. REVIEW OF SYSTEMS: CONSTITUTIONAL: No fever, no chills. HEENT: Normal. ENDOCRINE: No weight gain, no weight loss. CVS: No angina symptoms. No CHF symptoms. No palpitations. No atypical chest pain for CAD. No shortness of breath. No PND, no orthopnea. RESPIRATORY: No cough, no hemoptysis. GI: No nausea, no vomiting. No abdominal pain. : No hematuria. No polyuria. MUSCULOSKELETAL:. No joint swelling. PSYCHIATRIC: Not anxious. No depression. No suicidal thoughts. No homicidal thoughts. SKIN: Intact. No rash. PHYSICAL EXAMINATION: V/S: blood pressure 120/72, respiratory rate 20, heart rate 96, temperature 98.6 with saturation 99%. HEENT: Normocephalic, atraumatic. Mucosa dry. Pallor positive. No icterus. NECK: Supple. No JVD, no carotid bruit. No lymphadenopathy. LUNGS: Decreased and basilar crackles are present. No rales or rhonchi. HEART: S1, S2 normal. No S3. No murmur, gallop or regurgitation. ABDOMEN: Soft, nontender. Bowel sounds active. No rigidity. No rebound or guarding. No CVA tenderness. EXTREMITIES: No clubbing, cyanosis or pedal edema. NEUROLOGIC: Awake, alert, has some slurry speech. No focal deficit. Left upper extremity can squeeze, right upper extremity has normal per patient movement. Left lower extremity no movements, right lower extremities she has some movements. MUSCULOSKELETAL: No joint swelling. LYMPHATIC: No lymph nodes palpable. SKIN: Intact. LABS: WBC 7.04, hgb 11.7, hct 33.4, plt count 111, sodium 129, potassium 3.8, chloride 99, bicarb 21, BUN 10, creatinine 0.57, glucose 115. ASSESSMENT: 1. Slurry speech and left sided weakness rule out acute stroke 2. Atypical pneumonia per CAT scan 3. Hyponatremia 4. Traumatic brain injury and left sided weakness 5. Hypertension 6. Muscle spasm 7. Osteoarthritis of the right hip per CAT scan PLAN: 1. Carotid ultrasound 2. MRI of the brain 3. Urine drug test TIME SPENT: More than 35 minutes MTDD
--- NOTE | 2017-08-25 14:22 | HP ---
DATE OF SERVICE: 08/24/17 CHIEF COMPLAINT: Stroke and weakness. HISTORY OF PRESENT ILLNESS: When the patient woke up she had slurred speech this morning, diarrhea and was not moving left side. She complains of right leg pain, has coarse cough and was admitted last week for MRSA on right elbow. History is that patient has been having these symptoms since yesterday evening per patient's mother, Genia. She did complain at the [facility]. The patient was finally brought to the emergency room today around 11:27 in the morning. She initially was evaluated by Dr. Pena for slurred speech and more left-sided weakness. CT scan of the head did not show any acute stroke at that time. The patient's left lower extremity was not able to move; the left upper extremity has some strength; the right upper extremity was normal; right lower extremity was not able to move because of the pain. Further evaluation showed the patient was having 10% bands. Chemistry: Sodium 130, urine 2+ bacteria. Chest x-ray done shows normal cardiac silhouette; no CHF; minimal prompts bronchovascular markings. Correlate clinically regarding mild bronchitis. At that time, the patient was admitted to the hospital as the patient did lose the window of three hours for giving any Streptokinase at that time. REVIEW OF SYSTEMS: CONSTITUTIONAL: Weakness, lethargy. No fever, no chills. HEENT: Slurred speech. ENDOCRINE: No weight gain; no weight loss. CVS: No chest pain. No PND, no orthopnea. No shortness of breath. No PND, no orthopnea. RESPIRATORY: Cough and congestion. No hemoptysis. GI: No nausea, no vomiting. No abdominal pain. No melena. : No hematuria. No polyuria. MUSCULOSKELETAL: More weakness on the left side. PSYCHIATRIC: Not anxious. No depression. No suicidal thoughts. No homicidal thoughts. SKIN: Intact, no open lesions. PAST MEDICAL HISTORY: 1. History of traumatic brain injury with left-sided weakness 2. Musculoskeletal spasms for which she takes Baclofen 3. The patient has lupus 4. Depression/anxiety 5. Osteoarthritis 6. Recent right elbow infection with MRSA PAST SURGICAL HISTORY: 1. Tracheostomy in past 2. PERSONAL HISTORY: The patient does smoke and does smoke medical marijuana. FAMILY HISTORY: Significant for high blood pressure. MEDICATIONS: (HOME) 1. Lorazepam 2 mg p.o. bedtime 2. Polyvinyl Alcohol two drop OP bedtime 3. Tolterodine (Detrol LA) 4 mg p.o. daily 4. Prednisone 3 mg p.o. bedtime 5. Fluoxetine (Prozac) 60 mg p.o. daily 6. Melatonin 5 mg p.o. bedtime 7. Medroxyprogesterone (Depo-Provera) 150 mg IM as directed 8. Ibuprofen 800 mg p.o. t.i.d. 9. Potassium Chloride 10 mEq p.o. b.i.d. 10. Baclofen 30 mg p.o. 1730,2100 11. Gabapentin 600 mg p.o. t.i.d. 12. Dantrolene (Dantrium) 25 mg p.o. t.i.d. 13. Trazodone 150 mg p.o. bedtime 14. Sennosides 17.2 mg p.o. daily p.r.n. 15. Clindamycin 300 mg p.o. t.i.d. 16. Mupirocin 15 mg TP b.i.d. 17. Folic Acid 0.8 mg p.o. daily 18. Multivitamini one daily ALLERGIES: LATEX, MEPERIDINE, MORPHINE, VANCOMYCIN PHYSICAL EXAMINATION: V/S: BP 153/92, respiratory rate 22, heart rate 115, Saturation 93 on room air, temperature 99.7 HEENT: Atraumatic, normocephalic. Speech was baseline slurred but she is having more difficulty at this time to understand her. No scleral icterus. Pallor positive. Mucosa dry. NECK: Supple. No JVD, no bruit. No lymphadenopathy. No thyromegaly. HEART: Sinus tachy. S1, S2 normal. No murmur. No cyanosis or clubbing. No ascites. LUNGS: Decreased with basilar crackles. Mild expiratory wheeze. ABDOMEN: Soft, nontender. Bowel sounds are active. No CVA tenderness. No rigidity or guarding. EXTREMITIES: No cyanosis, clubbing or pedal edema. MUSCULOSKELETAL: Normal joints, no swelling. NEUROLOGIC: Left upper extremity she can squeeze my hand. Left lower extremity - she could not move at all. Right upper extremity she can move fine. Right lower extremity has decreased movements, says that her right side of lower back and right hip area is hurting. Slurred speech. SKIN: Intact; no open lesions. LYMPHATIC: No lymph nodes palpable. LABS: White count 6.76, hemoglobin 12.4, hematocrit 36.7, platelet count 106. Sodium 130, potassium 3.6, chloride 100, bicarb 21, BUN 11, creatinine 0.61, glucose 99. Urine 2+ bacteria, nitrites and leukocyte esterase negative. ASSESSMENT: 1. ACUTE LEFT-SIDED WEAKNESS, RULE OUT CVA 2. SLURRED SPEECH, RULE OUT CVA - CT SCAN IS NEGATIVE AT THIS TIME 3. UPPER RESPIRATORY INFECTION, RULE OUT PNEUMONIA 4. UTI 5. DEHYDRATION 6. HISTORY OF TRAUMATIC BRAIN INJURY 7. LEFT-SIDED WEAKNESS 8. RECENT RIGHT ELBOW ABSCESS PLAN: 1. Admit patient to regular floor 2. CBC, CMP today and daily 3. Cardiac enzymes and troponin 4. Will get a CT chest without contrast 5. CT of abdomen and pelvis 6. MRI of brain in the morning 7. US Doppler carotidin the morning 8. Soft diet 9. Breathing treatments 10. Rocephin 1 gm daily 11. IV fluids 12. Aspirin 81 mg p.o. daily 13. Decadron 14. IV fluids at 42 mL 15. Daily I & O's TIME SPENT: MORE THAN 70 minutes MTDD
--- NOTE | 2017-08-25 14:54 | US ---
EXAM: Bilateral carotid artery Doppler History: Hypertension, speech difficulty. Technique: Multiple sonographic images through the bilateral internal carotid arteries were obtained . Color duplex Doppler was used to interrogate vascular flow. Findings: The right ICA peak systolic velocity is within normal limits measuring 80 cm/sec. The right ICA/cca PSV ratio is normal at 1.0. The right vertebral artery is patent and demonstrates antegrade flow. G ray scale images demonstrate mild plaque buildup within the right internal carotid artery. The left ICA peak systolic velocity is within normal limits measuring 110 cm/sec. The left ICA/cca PS V ratio is normal at 1.1. The left vertebral artery is patent and demonstrates antegrade flow. Veronica scale images demonstrate mild plaque buildup within the left internal carotid artery Impression: No significant hemodynamic stenosis of the bilateral internal carotid arteries.
[2017-08-25 15:07] LABS: COCAIN SCREEN,URINE NEGATIVE (NEGATIVE)
[2017-08-25] MEDS: MICRO-K CAP PO SCH ×2 (17:11→20:26)
--- NOTE | 2017-08-25 18:47 | CT ---
EXAM: CT of the head without contrast. HISTORY: Slurred speech. COMPARISON: 08/24/2017 TECHNIQUE: Contiguous axial images at 5 mm intervals were obtained from the base of the skull to the vertex of the calvarium. No contrast was given. FINDINGS: There is prominence of the CSF containing spaces. This is seen most in the frontal lobes bilaterally as well as mild prominence of ventricles. No significant change in comparison to the annette or study. There is a CSF density fluid collection in the right frontal lobe which may be due to atro phy or subdural hygroma. No acute intracranial hemorrhage is identified. There are no extraaxial fl uid collections. There is no evidence of an acute intracranial hemorrhage. There are no masses or m ass effect. No areas of abnormal density are identified. Veronica-white differentiation is normal. T he osseous and extracranial soft tissues are normal. IMPRESSION: 1. Stable CT of the head without acute intracranial abnormalities. No change in comparison to the annette or study. 2. Stable bifrontal atrophy and mild ventriculomegaly. These findings are more prominent than expec ean for the patient's age. 3. Asymmetric hypodense fluid collection in the subdural space on the right may be due to atrophy. A subdural hygroma cannot be excluded.
[2017-08-25] MEDS: ROCEPHIN 1 GM in SODIUM CHLORIDE 100 ML IV SCH (20:23)
[2017-08-25] MEDS: NON-FORMULARY MEDICATION (Melatonin [Melatonin] 5 MG) PO SCH (20:24)
[2017-08-25] MEDS: DESYREL PO SCH (20:25)
[2017-08-25] MEDS: ATIVAN PO SCH (20:25)
[2017-08-25] MEDS: PREDNISONE PO SCH (20:26)
[2017-08-25] MEDS: ARTIFICIAL TEARS OPTH SOL OP SCH (20:26)
[2017-08-25] MEDS: PYRIDOXINE HCL PO SCH (21:36)
[2017-08-25] MEDS: MELATONIN PO SCH (21:36)
[2017-08-26] MEDS: SODIUM CHLORIDE 1,000 ML IV SCH ×2 (00:50→23:39)
[2017-08-26] MEDS: DUONEB NEB SCH ×4 (05:32→23:13)
[2017-08-26 05:43] LABS: BASOPHILS % (AUTO) 0.1 % (0.0-3.0); HEMATOCRIT 35.9 % (37.0-47.0); HEMOGLOBIN 12.1 g/dl (12.0-16.0); IMMATURE GRANULOCYTE % (AUTO) 0.6 % (0.0-5.0); LYMPHOCYTES # (AUTO) 2.3 K/uL (0.60-3.4); LYMPHOCYTES % (AUTO) 22.6 (10.0-50.0); MEAN CORPUSCULAR HGB CONC 33.7 (31.8-35.4); MONOCYTES # (AUTO) 0.9 K/uL (0.4-2.0); MONOCYTES % (AUTO) 8.9 (0-10); NEUTROPHILS # (AUTO) 6.9 K/ul (2.0-6.9); NEUTROPHILS % (AUTO) 67.8; PLATELET COUNT 120 10^3/uL (140-440); RED BLOOD COUNT 3.78 10^6/ul (4.20-5.40); WHITE BLOOD COUNT 10.15 K/ul (4.6-10.2)
[2017-08-26 06:17] LABS: ALBUMIN 2.1 g/dL (3.4-5.0); ALBUMIN/GLOBULIN RATIO 0.39; ANION GAP 14.5; BILIRUBIN,TOTAL 0.29 mg/dL (0.00-1.20); BUN/CREATININE RATIO 17.46; CALCIUM 8.5 mg/dL (8.2-10.2); CREATININE 0.63 mg/dL (0.60-1.30); POTASSIUM 4.5 mmol/L (3.5-5.10); TOTAL PROTEIN 7.5 g/dL (6.4-8.2)
[2017-08-26] MEDS ORDERED: TYLENOL PO PRN (07:38)
[2017-08-26] MEDS ORDERED: ATIVAN IVP STA (09:55)
[2017-08-26] MEDS: PROZAC PO SCH (11:22)
[2017-08-26] MEDS: NEURONTIN PO SCH ×3 (11:22→23:00)
[2017-08-26] MEDS: ASPIRIN EC PO SCH (11:22)
[2017-08-26] MEDS: DETROL LA PO SCH (11:22)
[2017-08-26] MEDS: DANTROLENE SODIUM 25 MG PO SCH ×3 (11:22→23:00)
[2017-08-26] MEDS: MULTIVITAMIN PO SCH (11:22)
[2017-08-26] MEDS: BACTROBAN TP SCH ×2 (11:23→21:00)
[2017-08-26] MEDS: MUCINEX PO SCH ×2 (11:23→23:02)
[2017-08-26] MEDS: FOLIC ACID PO SCH (11:23)
--- NOTE | 2017-08-26 12:21 | MRI ---
EXAM: Brain MRI without contrast. HISTORY: Changes level of consciousness and decreased use of left lower extremity. COMPARISON: Head CT 08/25/[address] 08/24/2017. TECHNIQUE: Multiplanar, multisequence MR images were acquired of the brain without contrast. The gertrudis dy is degraded by patient motion. FINDINGS: The study is patient motion degraded and repeat is advised with anesthesia or when the pat ient can lie still. The midline structures are central and there is no cerebellar tonsillar ectopia. There is a right frontal parietal extra-axial fluid collection that measures about 9 mm lateral to the lateral right frontal lobe and about 7.6 mm lateral to the right parietal lobe. There is no abno rmal dark gradient echo signal. However, the sequence is markedly degraded by motion and subtle hemo siderin staining may be missed. The appearance is most consistent with a right frontoparietal subdur al hygroma. There is mild prominence of the lateral and third ventricles. The sulci are generally n ormal in size although not well seen due to patient motion. The brain parenchyma has a probable small acute to subacute 6 mm x 3 mm infarct in the genu of the le ft internal capsule. This has bright B 1000, isointense ADC signal and faint partial bright T2 signa l. There is also a small focus of faint bright B 1000 and T2 signal in the posterior internal capsul e without corresponding T2 signal abnormality which is nonspecific. There is a small 1.3 cm AP by 0. 3 cm TX acute infarct in the right posterior external capsule. This has diffusion restriction with b right B 1000, dark ADC signal and bright T2 signal. There is a 3 mm focus of faint diffusion restriction in the right cerebral peduncle, a second 3.6 mm focus of diffusion restriction slightly more inferiorly in the right cerebral peduncle/izaiah, a possib le 5 mm focus of diffusion restriction in the right ventral izaiah and a 3.7 mm focus of diffusion rest riction in the right dorsal midbrain. These foci have mildly bright B 1000, isointense to hypointens e ADC signal without corresponding T2 signal abnormality. These may be artifactual or represent smal l areas of recent ischemia. Additional small foci of faint bright B 1000 signal without corresponding dark ADC signal. The right T2 signal are noted inferiorly in the brain stem which are nonspecific. There is a 6 mm focus of faint diffusion restriction with faint bright B 1000 and isointense ADC sig nal at T2 signal abnormality in the medial temporal lobe which is nonspecific and may be artifactual. There is a band of periventricular FLAIR hyperintensity consistent with least minor leukomalacia. Ad ditional small T2 and FLAIR hyperintensities are probably present but cannot be evaluated due to tamra ent patient motion. The corpus callosum is present. The configuration is not clearly defined. The pituitary gland cannot be evaluated. There is minor hyperostosis frontalis interna. No intraorbital masses are present. Paranasal sinuse s are grossly unremarkable. There is adenoidal hypertrophy. There is probable mild mucosal thickeni ng in a few inferior left mastoid air cells. Artifact is considered less likely. The partially visualized [place] and dural venous sinuses cannot be evaluated due to patient motion. IMPRESSION: 1. The study is technically limited due to patient motion artifact and repeat is advised with anesth esia. 2. 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 3. Unexpected result. Probable small acute sub-centimeter infarct left internal capsule and probabl e small acute 1.3 cm x 0.3 cm infarct right posterior external capsule. 4. Possible small foci of recent ischemia right cerebral peduncle, mid brain and izaiah. Results faxed to the referring Hospital at 12:14 p.m and [facility] will contact the referr [facility].
[2017-08-26 14:40] LABS: CHOL/HDL RATIO 3.4 (4.5-5.5)
[2017-08-26] MEDS: MICRO-K CAP PO SCH ×2 (16:47→23:00)
[2017-08-26] MEDS: ARTIFICIAL TEARS OPTH SOL OP SCH (20:54)
[2017-08-26] MEDS: ROCEPHIN 1 GM in SODIUM CHLORIDE 100 ML IV SCH (20:54)
[2017-08-26] MEDS: DESYREL PO SCH (23:00)
[2017-08-26] MEDS: PREDNISONE PO SCH (23:00)
[2017-08-26] MEDS: MELATONIN PO SCH (23:01)
[2017-08-26] MEDS: ATIVAN PO SCH (23:01)
[2017-08-26] MEDS: PYRIDOXINE HCL PO SCH (23:01)
[2017-08-26] MEDS: NON-FORMULARY MEDICATION (Melatonin [Melatonin] 5 MG) PO SCH (23:01)
[2017-08-26] MEDS ORDERED: TYLENOL RC STA ×2 (23:56)
[2017-08-26] MEDS ORDERED: ZOSYN 2.25 GM 2.25 GM in SODIUM CHLORIDE 100 ML IV STA (23:59)
[2017-08-27] MEDS ORDERED: TYLENOL RC ONE (00:07)
[2017-08-27 05:10] LABS: HEMATOCRIT 31.8 % (37.0-47.0); HEMOGLOBIN 11.2 g/dl (12.0-16.0); MEAN CORPUSCULAR HEMOGLOBIN 33.6 pg (27.0-31.0); MEAN CORPUSCULAR HGB CONC 35.2 (31.8-35.4); MEAN CORPUSCULAR VOLUME 95.5 fl (81.0-99.0); PLATELET COUNT 129 10^3/uL (140-440); RED BLOOD COUNT 3.33 10^6/ul (4.20-5.40); WHITE BLOOD COUNT 12.43 K/ul (4.6-10.2)
[2017-08-27] MEDS: DUONEB NEB SCH ×3 (05:12→17:15)
[2017-08-27 05:26] LABS: ANISOCYTOSIS NOT PRESENT (NOT PRESENT)
[2017-08-27 05:35] LABS: ALBUMIN 1.9 g/dL (3.4-5.0); ALBUMIN/GLOBULIN RATIO 0.35; BILIRUBIN,TOTAL 0.37 mg/dL (0.00-1.20); BUN/CREATININE RATIO 17.85; CALCIUM 8.5 mg/dL (8.2-10.2); CREATININE 0.56 mg/dL (0.60-1.30); TOTAL PROTEIN 7.3 g/dL (6.4-8.2)
[2017-08-27 08:31] LABS: FLU INTERNAL QC INTERNAL QC VALID; RAPID FLU A NEGATIVE (NEGATIVE); RAPID FLU B NEGATIVE (NEGATIVE)
[2017-08-27] MEDS ORDERED: TRANSDERM-SCOP 1.5 MG PATCH TD SCH (09:00)
[2017-08-27] MEDS: BACTROBAN TP SCH (09:04)
[2017-08-27 10:46] LABS: BILIRUBIN,URINE Negative (NEGATIVE); KETONES,URINE 2+ (NEGATIVE); LEUKOCYTE ESTERASE ,URINE Negative (NEGATIVE); NITRITE,URINE Negative (NEGATIVE); PROTEIN,URINE 1+ (NEGATIVE); URINE, BLOOD 2+ (NEGATIVE)
[2017-08-27 10:47] LABS: ADD URINE MICROSCOPIC YES
[2017-08-27 10:48] LABS: BACTERIA,URINE TRACE (NOT PRESENT)
[2017-08-27] MEDS ORDERED: SOLU-MEDROL 125 MG IVP STA (11:05)
--- NOTE | 2017-08-27 11:09 | PN ---
DATE OF SERVICE: 08/26/17 Along with Teri Myers SUBJECTIVE: I said her name as Tiffanie and she corrected me saying "Dr. Velazco, I'm Cori" but she still has the slurry speech, left lower extremity weakness is still present. The patient could not do the MRI of the brain yesterday as the patient was moving a lot in the MRI and they suggested us to give her a sedation. We do have a concern at this time before the sedation because the patient is here with slurry speech and the stroke symptoms and the if Ativan make it worse with the symptoms palomino but the patient's mother keeps calling us about transfer the patient to the [facility] and initial talks when we had a talk with the patient's mother we did explain that the patient was out of period for the Thrombolytics or clot thrombectomy treatments which is 24 hours. When they window period is over so now no other treatments were available at given time for the transfer for the tertiary center. She did try to understand and she wanted to wait on the MRI results which will be today morning. REVIEW OF SYSTEMS: CONSTITUTIONAL: No fever, no chills. HEENT: Normal. ENDOCRINE: No weight gain, no weight loss. CVS: No angina symptoms. No CHF symptoms. No palpitations. No atypical chest pain for CAD. No shortness of breath. No PND, no orthopnea. RESPIRATORY: Cough and some difficulties getting the secretions out because of her condition. Respiratory therapist are giving the suctioning of the secretions. No hemoptysis. GI: No nausea, no vomiting. No abdominal pain. : No hematuria. No polyuria. MUSCULOSKELETAL:. No joint swelling. PSYCHIATRIC: Not anxious. No depression. No suicidal thoughts. No homicidal thoughts. SKIN: Intact. No rash. PHYSICAL EXAMINATION: V/S: Blood pressure 128/78, respiratory rate 18, heart rate 94, temperature 98 with saturation 93 on the room air. HEENT: Normocephalic, atraumatic. Mucosa dry. Pallor positive. No icterus. NECK: Supple. No JVD, no carotid bruit. No lymphadenopathy. LUNGS: Decreased with basilar crackles. No rales or rhonchi. HEART: S1, S2 normal. No S3. No murmur, gallop or regurgitation. ABDOMEN: Soft, nontender. Bowel sounds active. No rigidity. No rebound or guarding. No CVA tenderness. EXTREMITIES: No clubbing, cyanosis or pedal edema. MUSCULOSKELETAL: No joint swelling. NEUROLOGIC: Awake, alert, responding to the verbal stimuli. Left lower extremity can not move at all, Left upper extremity can squeeze my hand, Right lower extremity the movement are a little better has pain in right lower back is better and right upper extremity movements are normal. As explained again the patient does have slurry speech more than usual. No focal deficit. LYMPHATIC: No lymph nodes palpable. SKIN: Intact. Right elbow wound is looking healthy with minimal drainage. LABS: WBC 10.15, hgb 12.1, hct 35.9, plt count 120, sodium 136, potassium 4.5, chloride 103, bicarb 23, BUN 11, creatinine 0.63, glucose 97 ASSESSMENT: 1. Left sided weakness and slurry speech most likely stroke CAT scan is negative. Repeat CAT scan was also negative. 2. Atypical pneumonia 3. Right elbow abscess which is getting better 4. Hyponatremia 5. Anemia 6. History of Traumatic brain injury with the left sided weakness and problem with the talking PLAN: 1. Ativan 1mg IV push before the MRI 2. Continue the Aspirin 3. Rocephin 1 gram daily 4. Breathing treatments 5. Oral suctioning TIME SPENT: More than 35 minutes MTDD
--- NOTE | 2017-08-27 11:21 | PN ---
DATE OF SERVICE: 08/27/17 SUBJECTIVE: This is a 36-year-old female. She is drowsy, responds to verbal stimuli and goes back to sleep. She still has slurry speech, coughing. She has started having a fever since last night at 10 p.m. Anticoagulation workup has been placed. Blood cultures were done around 1 a.m. The patient's antibiotics were changed to Zosyn. Oral suctioning is continued. [facility] called and took all the information on the patient. The patient's mother is calling frequently and the [employer] senior engineering tech is also present in the room. The patient is having trouble coughing up the phlegm and a lot of secretions are noted in the throat. REVIEW OF SYSTEMS: CONSTITUTIONAL: Fever. No chills. HEENT: The patient has a lot of secretions in the throat. ENDOCRINE: No weight gain, no weight loss. CVS: No angina symptoms. No CHF symptoms. No palpitations. No atypical chest pain for CAD. No shortness of breath. No PND, no orthopnea. RESPIRATORY: Cough and congestion. The patient is having difficulty coughing up the phlegm and has a lot of secretions in the throat. No hemoptysis. GI: No nausea, no vomiting. No abdominal pain. : No hematuria. No polyuria. MUSCULOSKELETAL:. No joint swelling. PSYCHIATRIC: Not anxious. No depression. No suicidal thoughts. No homicidal thoughts. SKIN: Right elbow wound. PHYSICAL EXAMINATION: V/S: Temperature 99.8, BP 142/82, Respiratory Rate 22, Heart Rate 96, saturation 97% on 2L. HEENT: Normocephalic, atraumatic. Throat: The patient has a lot of secretions. Mucosa dry. Pallor positive. NECK: Supple. No JVD, no carotid bruit. No lymphadenopathy. LUNGS: Decreased entry with basilar crackles. No rales or rhonchi. HEART: S1, S2 normal. No S3. No murmur, gallop or regurgitation. ABDOMEN: Soft, nontender. Bowel sounds active. No rigidity. No rebound or guarding. No CVA tenderness. EXTREMITIES: No clubbing, cyanosis or pedal edema. MUSCULOSKELETAL: No joint swelling. NEUROLOGIC: Responds to verbal stimuli. Slurred speech is present. Left upper extremity - can squeeze. Left lower extremity cannot move at all. Right upper extremity and right lower extremity movements are present. LYMPHATIC: No lymph nodes palpable. SKIN: Right elbow wound has small amount of drainage. LABS: Sodium 137, potassium 4.0, chloride 104, bicarb 22, BUN 10, creatinine 0.56. White count 12.43, hemoglobin 11.2, hematocrit 31.8, platelet count 129. ASSESSMENT: 1. 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 2. SLURRED SPEECH 3. FEVER MOST LIKELY FROM PNEUMONIA (THE PATIENT DID HAVE ATYPICAL PNEUMONIA ON ADMISSION) WILL REPEAT CHEST X-RAY AND UA ALSO 4. HISTORY OF TRAUMATIC BRAIN INJURY WITH LEFT-SIDED WEAKNESS 5. ANEMIA 6. RIGHT ELBOW ABSCESS WHICH IS GETTING BETTER PLAN: 1. Repeat chest x-ray 2. UA 3. Zosyn IV 4. Rapid strep and flu 5. All oral medications have been on hold now 6. IV fluids at 50 mL/hr 7. Breathing treatment 8. Daily I & O's 9. Will followup with [facility]. The patient's mother is calling repeatedly and is threatening us because of her care. I tried to explain to her that clearly we talked to [facility] twice and they are looking into her case and about the transfer; however, as again mentioned, the patient was coming in after the window period and suggested that we do post stroke care, which we are doing. Now the case is complicated with having fever. The fever is most likely from the pneumonia. We already did a blood culture. Will do urinalysis. The patient has been started on new antibiotic Zosyn. I explained everything in detail to the family and caregivers. TIME SPENT: More than 70 minutes today which is critical care time. CHARITO
--- NOTE | 2017-08-27 11:27 | PN ---
DATE OF SERVICE: 08/26/17 @ 1800 I returned to the hospital and examined the patient. The patient is still groggy and lethargic. It was not clear whether she is groggy and drowsy because of giving Ativan or the stroke is getting worse at given point. The MRI was done this morning around 12:00 and did show internal capsule stroke. [facility] personal phone and the phone was in speaker mode so that the nurses could listen. They clearly said the patient was out of the window period and they are going to send the case to the [facility] and give us a call back for possible transfer, which again was conveyed to the patient's mother about this. TIME SPENT: More than 30 minutes CHARITO
--- NOTE | 2017-08-27 11:33 | PN ---
DATE OF SERVICE: 08/26/17 SUBJECTIVE: We did get the MRI findings. MRI showed patient had a right parietal subdural hygroma and probable small acute sub-centimeter infarct left internal capsule and probable small acute 1.3cmx 0.3cm infarct right posterior external capsule and possible small foci of recent ischemia right cerebral peduncle, right and izaiah with these findings we did talk to the [facility]. We talked to the Neurologist "Dr. Marte", who was pigeon fancier there. After giving the patient 's detail and the MRI findings they clearly said that the patient is out of window for the thrombolytics or thrombectomy processes. He suggested given Aspirin, do an echocardiogram, rehabilitation and anticoagulation work up which we ordered and they would like to see her in the clinic after 7-10 days. He did mentioned the concerned that advised to ask if the patient had any falls at the facility as the patient lives at the [facility] but the [facility] did not give us any kind of fall history which was suspected but we don't have any history on her at present time. TIME SPENT: More than 30 minutes CHARITO
[2017-08-27] MEDS ORDERED: ZOSYN 3.375 GM 3.375 GM in SODIUM CHLORIDE 100 ML IV SCH (12:00)
--- NOTE | 2017-08-27 13:36 | ECHO2D ---
Date of Exam: 08/27/17 Ordering Physician: VERO ROSE Room #: 102 Reason for Echo: M-Mode Normal Adult Results LV Dimensions Normal Adult Results AoV Opening excursions >1.6 [] LVEDD-base- 3.5-5.8 [] Ao root dimensions 2.0-3.7 [] LVESD-base- 3.1-4.6 [] L. Atrium dimensions 1.9-3.8 [] Post. Wall thickness 0.8-1.1 [] IV septum (thickness) 0.7-1.2 [] Post. Wall excursion 0.72-1.3 [] Septal motion [] Systolic motion R. Ventricular cavity 1.5-2.0 [] LVEF 60% [] Paradoxical septal wall motion [] 2-D : [] M-MODE: MV: [] AV: [] TV: [] PV: [] CHAMBER SIZE: [] WALL MOTION: [] PERICARDIUM: [] INTERPRETATION: 1. [] 2. [] 3. [] 4. [] MTDD
--- NOTE | 2017-08-27 14:11 | CT ---
EXAM: CT of the chest without contrast History: Cough, congestion and fever. Comparison: Chest CT 08/24/2017 Technique: Multiplanar CT images through the thorax were obtained without the administration of IV c ontrast Findings: Heart size is upper limits of normal. Great vessels are grossly unremarkable on this nonc ontrast study. No axillary adenopathy. A few borderline enlarged mediastinal lymph nodes are stable . Evaluation for hilar lymph nodes is limited due to the lack of contrast administration. Apical predominant paraseptal emphysema again noted. Patchy bilateral ground-glass infiltrates and i nterlobular septal thickening slightly worsened compared to the prior study. Small right pleural eff usion and trace left pleural effusion. No pneumothorax. Within the visualized upper abdomen, a few left renal calcifications measuring up to 4 mm. Pneumobil ia. Osteopenia. Mildly displaced fractures of the right fifth and seventh ribs. Impression: 1. Bilateral ground-glass lung infiltrates are slightly worsened compared to the previous chest CT a nd could represent pulmonary edema and/or pneumonia. Small right and trace left pleural effusions. 2. Mildly displaced right rib fractures.
[2017-08-27] MEDS ORDERED: LASIX IVP STA (14:21)
--- NOTE | 2017-08-27 14:34 | CT ---
EXAM: CT angiogram of the head and neck with and without contrast HISTORY: . Stroke TECHNIQUE: Imaging of the head and neck was performed before and after the intravenous administratio n of contrast. 3 mm thin axial images and coronal and sagittal reconstructions and rotated 3-D recon structions were provided for interpretation. Comparison MRI of the brain dated 08/26/2017. FINDINGS: CT angiogram of the neck: The left common carotid artery appears to be normal caliber. There is a small amount of calcified pl aque seen within the left carotid bifurcation not causing appreciable stenosis. The proximal, mid an d distal left internal carotid artery appear patent. The right common carotid artery appears to be normal caliber. The right carotid bifurcation appears patent. The proximal, mid and distal right internal carotid artery appear adequately patent. The vertebral arteries appear to be codominant. The proximal, mid and distal segments of the vertebr al arteries appear to be adequately patent. The left subclavian artery, right subclavian artery appear patent. The brachiocephalic artery appear s adequately patent. CT angiogram of the head: There is normal delineation of the cavernous carotid artery and supraclinoid ICA. The M1 segments of the middle cerebral arteries appear to be normal caliber. There is a normal appearance of the dista l branches of the middle cerebral arteries. The A1 segments are seen bilaterally. The anterior commu nicating artery is not well seen. The A2 segments are seen bilaterally. The distal vertebral arteries and vertebral basilar junction appear normal. The basilar artery appea rs to be small in caliber without focal stenosis. There are origins of the posterior cerebral arteries bilaterally. There is normal enhancement of the anterior and posterior aspects of the superior sagittal sinus. The mid segment of the superior sagittal sinus at the vertex was not seen on this examination. The iwnkler sverse sinuses, and sigmoid sinuses appear patent. There is normal enhancement of the straight sinus . A subdural hygroma is again seen overlying the right frontal, right parietal convexity. The findings measure approximately 9-10 mm thick. No parenchymal hemorrhages are identified. The lateral ventric les and cortical sulci are normal. The basal cisterns are patent. IMPRESSION: There is a small amount of plaque seen within the left carotid bifurcation not causing a ppreciable stenosis. The right carotid bifurcation appears patent. No significant intracranial stenosis identified. There is no evidence of acute vascular occlusion. No evidence of aneurysm or vascular malformation. A subdural hygroma is again seen overlying the right frontal and right parietal convexity.
[2017-08-27 14:53] VITALS: BP 136/86; TEMP 99.8
--- NOTE | 2017-08-27 15:55 | DS ---
DATE OF SERVICE: 08/27/17 FINAL DIAGNOSIS: 1. Subacute stroke 2. Slurry speech 3. Difficulty swallow 4. Impending respiratory failure 5. Right internal capsule 6. Right cerebral peduncle, midbrain and izaiah 7. Pneumonia, atypical been treated with IV antibiotics 8. Anemia 9. 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 under the care of Dr. Hilton for the higher management. Continue the antibiotics Zosyn, DUO NEBS. All oral medications are on hold. MEDICATIONS AT DISCHARGE: Solu-Medrol 80mg given one dose Zosyn Q 8 hours. IV fluids at 50ml per hour DIET INSTRUCTIONS: NPO ACTIVITY: Complete bed rest SMOKING: Current every day smoker DISEASE SPECIFIC EDUCATION: Stroke Stroke preventions Smoking Been discussed with the patient's mother Charlene. We were explaining to her why she may had a stroke. HOSPITAL COURSE: Khalida Crowe who is a 36 year old female who lives at [facility] has a history of 20 years ago she had traumatic brain injury and has some difficulty talking and left sided spastic hemiplegia. She was found to be more slurry and not by herself on Friday morning for which the patient was sent to the emergency room at [facility]. Dr. Pena in the ER saw the patient. Initial CT scan was negative. At that time as patient was out of window period for thrombolytics the patient was admitted to the [facility] then we had extensive talk with the mother, Chralene. She wanted the patient to be transferred to the higher center and did try to explain that as patient is out of the window period and essentially to the [facility] and explained that because of the [facility] being a [facility] they may not accept the patient because of the condition because it is already more than 4 hours for getting anticoagulation or thrombolytics. After that we did do the CT chest and CT abdomen and pelvis. CT chest did show pneumonia. The patient was scheduled for MRI on the August 25 which she could not tolerate and she was moving so there was a lot of artifact and the radiologist suggested to get one more MRI. Meanwhile the Carotid Ultrasound was done which did not show any plaque. Then MRI of the brain was done on August 26. The patient still had the weakness of the left lower extremity and some slurry speech. The patient was able to swallow the medication on August 25 and by August 26 morning when I saw the patient August 26 I said "Tiffanie, Hi, How are you?" but she said " Im not Tiffanie, I'm Cori" she did correct me. We had to given an Ativan IV push for MRI of the brain. After that patient kept going down more weak and more slurry. She was still responding to the verbal stimuli and answering but more muffled and more gargled voice was present. At that time [facility] was approached and talked to , Neurologist and they said as patient been past the time period for the thrombolytics therapy they could not offer much help at this time. They just suggested to get a post stroke care; putting her into physical therapy, getting carotid ultrasounds and the cholesterol panel which were already ordered and some of those tests were already negative. They will be more than happy to see her as an outpatient. Over the night again on the August 27 the patient's condition is still like that with the slurry speech and a lot of secretions in the neck. The pulmonary department kept doing the suctions. Meanwhile we got the echocardiogram which did the ejection fraction 60% but no other abnormalities. CTA neck and CT chest was ordered today again. Which CTA neck results just came and did not show any blockage. CT of chest showed the worsening of the pneumonia. Meanwhile we again talked to the [facility] and they had a complex case managerassistant distribution manager and they decided that this patient is not going to get any benefit despite if you transfer the patient for the neurologist evaluation there. They refused to take the patient. Eventually we contacted the [facility] as patient was having more secretions in the throat and we were worried that maybe she having aspiration pneumonia or choking episodes. At that time Dr. Hilton was courteous enough and she accepted the patient. The patient will be admitted to the Neuro [facility]illo there. We were talking to the [facility] and they did ask if the patient had any fall history at the facility. When we talked to the [facility] where she lives they refused any fall history and they did not tell us. Meanwhile the patient's mother kept calling us for the transfer and finally we were able to transfer the patient to the [facility] for further care. TIME SPENT: MORE THAN 55 MINUTES MTDD
[2017-08-28 06:13] LABS: PROTEIN C ANTIGEN 61 % (60-150); PROTEIN S, FREE 46 % (57-157); PROTEIN S, TOTAL 68 % (60-150)
[2017-08-28 06:13] LABS: DILUTE PROTHOMBIN TIME 118.2 sec (0.0-55.0); INTERPRETATION Comment: (.); PTT-LA MIX 66.1 sec (0.0-48.9); dRVVT 103.2 sec (0.0-47.0)
[2017-08-28] MEDS ORDERED: MEDROXYPROGESTERONE ACETATE 150 MG IM SCH (09:00)
--- NOTE | 2017-08-29 07:52 | ECHO2D ---
Date of Exam: 08/27/17 Ordering Physician: [facility]VERO HENDERSON Reason for Echo: TRAUMATIC BRAIN INJURY Room #: 102 M-Mode Normal Adult Results LV Dimensions Normal Adult Results AoV Opening excursions >1.6 >1.6 LVEDD-base- 3.5-5.8 4.2 Ao root dimensions 2.0-3.7 3.7 LVESD-base- 3.1-4.6 L. Atrium dimensions 1.9-3.8 4.2 Post. Wall thickness 0.8-1.1 1.1 IV septum (thickness) 0.7-1.2 1.2 Post. Wall excursion 0.72-1.3 NORMAL Septal motion NORMAL Systolic motion R. Ventricular cavity 1.5-2.0 NORMAL LVEF 60% 69% Paradoxical septal wall motion NORMAL 2-D : MILDLY ENLARGED LEFT ATRIAL CAVITY--NORMAL LEFT VENTRICLE CONTRACTILITY-- MITRAL VALVE PROLAPSE NOTED APICAL FOUR CHAMBER VIEW AND LEFT PARASTERNAL LONG AXIS VIEW, NO EFFUSION, NO THROMBUS M-MODE: MV: MITRAL VALVE PROLAPSE LATE SYSTOLIC AV: NORMAL TV: NORMAL PV: NORMAL CHAMBER SIZE: ENLARGED LEFT ATRIAL CAVITY WALL MOTION: NORMAL PERICARDIUM: NORMAL INTERPRETATION: 1. MITRAL VALVE PROLAPSE LATE SYSTOLIC 2. BORDERLINE LEFT VENTRICULAR HYPERTROPHY WITH MILD LEFT ATRIAL CAVITY ENLARGEMENT 3. NORMAL LEFT VENTRICULAR CONTRACTILITY MTDD
== END 2017-08-27 16:40 | disposition short-term general hospital (02) | DRG 64 ==
LOC: ED 11:27 → MEDSURG A 13:27 → UNDOADMIN 13:27
PROVIDERS: ADMIT Emergency Medicine; ATTEND Emergency Medicine
DX: I63.8 Other cerebral infarction (principal); J18.9 Pneumonia, unspecified organism; G82.50 Quadriplegia, unspecified; J96.90 Respiratory failure, unspecified, unspecified whether with hypoxia or hypercapnia; G81.94 Hemiplegia, unspecified affecting left nondominant side; G82.20 Paraplegia, unspecified; E87.1 Hypo-osmolality and hyponatremia; L02.413 Cutaneous abscess of right upper limb; R05 Cough; R47.81 Slurred speech; F79 Unspecified intellectual disabilities; F17.200 Nicotine dependence, unspecified, uncomplicated; M79.604 Pain in right leg; R13.10 Dysphagia, unspecified; D64.9 Anemia, unspecified; F41.8 Other specified anxiety disorders; M62.81 Muscle weakness (generalized); I10 Essential (primary) hypertension; M16.11 Unilateral primary osteoarthritis, right hip; M62.838 Other muscle spasm; D18.1 Lymphangioma, any site; R50.9 Fever, unspecified; R19.7 Diarrhea, unspecified; Z93.0 Tracheostomy status; Z87.39 Personal history of other diseases of the musculoskeletal system and connective tissue; T14.8XXS Other injury of unspecified body region, sequela; V89.2XXS Person injured in unspecified motor-vehicle accident, traffic, sequela; Z87.820 Personal history of traumatic brain injury; Z79.899 Other long term (current) drug therapy
CPT/HCPCS: 36415; 80053; 80061; 80306; 81001; 82550; 84484; 85007; 85025; 85300; 85301; 85302; 85305; 85306; 85610; 85705; 85730; 87040; 87081; 87086; 87651; 87804; 87880; 93005; 93010; 94640; 99285